=== PATIENT | female | born 1965 | race Caucasian/White ===

== ENCOUNTER → 2018-02-13 14:20 | Outpatient (CLI) | payer BC, OTHER, SELFPAY | PROVIDERS: PCP Family Medicine; Visit Provider Specialist | DX: G47.33 Obstructive sleep apnea (adult) (pediatric) (principal) | CPT/HCPCS: 94762 ==

== ENCOUNTER → 2018-03-23 12:20 | Outpatient (CLI) | payer BC, OTHER, SELFPAY ==
--- NOTE | 2018-03-23 12:27 | XR_ITS ---
XR chest 2V HISTORY: ITS.REASON: COUGH ORDERING PHYSICIAN: Corby Sandoval MD PATIENT AGE: 53 years COMPARISON: 08/24/2016 FINDINGS: The cardiomediastinal silhouette and pulmonary vascularity are within normal limits. 10 mm noncalcified nodules present in the left upper lobe not signally change. A loop recorder device is present over the precordial region on the left. The lungs are otherwise clear.. No acute bony abnormalities. IMPRESSION: No change with no acute finding
== END ==
PROVIDERS: PCP Family Medicine; Visit Provider Family Medicine
DX: R05 Cough (principal)
CPT/HCPCS: 71046

== ENCOUNTER → 2018-05-08 16:43 | Outpatient (CLI) | payer BC, OTHER, SELFPAY ==
--- NOTE | 2018-05-08 16:50 | MM_ITS ---
MM Dig screening mamm BI w/CAD ORDERING PHYSICIAN : Corby Sandoval MD PATIENT AGE: 53 years GENDER: Female COMPARISON: July 2015, 2014, August 2016, June 2013. Marked 1999 INDICATION: Routine screening mammogram+ no hormones. No new complaints. Family history. Noncontributory. TECHNIQUE: Standard CC and MLO images were obtained. R2 CAD reviewed. Additional axillary cc views bilateral FINDINGS: Moderate dense heterogeneous fibroglandular elements are seen throughout the breasts most evident at the central and superior breast towards upper-outer quadrant.. Mammography slightly limited breast of this density in character. The Overall fibroglandular parenchymal pattern is similar to previous studies with no focal dominant nor suspicious mass. No suspicious calcification There is a long-standing stable 8.5 mm nodule at the lateral aspect of the left breast, upper-outer quadrant. This is been present since studies dating back to at least 2012 and 2011.. Can be followed safely. . Scattered areas of fibroglandular density appears similar to previous studies with no significant or discrete new findings. IMPRESSION: No significant new findings. Moderately dense heterogeneous breast Follow-up in one year recommended. BI-RADS Category: 2 Benign Finding(s) RECOMMENDED FOLLOW-UP: 1YR 1 YEAR FOLLOW-UP (A letter has been sent to the patient regarding results of the study.)
== END ==
PROVIDERS: PCP Family Medicine; Visit Provider Family Medicine
DX: Z12.31 Encounter for screening mammogram for malignant neoplasm of breast (principal); N60.19 Diffuse cystic mastopathy of unspecified breast
CPT/HCPCS: 77067

== ENCOUNTER → 2018-08-14 15:32 | Outpatient (CLI) | payer BC, OTHER, SELFPAY ==
[2018-08-14 18:35] LABS: Anion Gap 14.4 mEq/L (5-15); Blood Urea Nitrogen 13 mg/dL (7-18); Calcium 8.9 mg/dL (8.5-10.1); Carbon Dioxide 27 mmol/L (21.0-32.0); Chloride 102 mmol/L (98-107); Creatinine,Serum 1.14 mg/dL (0.55-1.02); Estimated Glomerular Filt Rate 50 ml/min (>60); GFR (African American) 61 ML/MIN (>60); Glucose 111 mg/dL (74-106); Potassium 3.4 mmoL/L (3.5-5.1); Sodium 140 mmol/L (136-145)
== END ==
PROVIDERS: Visit Provider Urology
DX: R07.89 Other chest pain (principal); R06.00 Dyspnea, unspecified; R60.9 Edema, unspecified; G47.33 Obstructive sleep apnea (adult) (pediatric)
CPT/HCPCS: 36415; 80048; 83880

== ENCOUNTER → 2018-08-22 17:16 | Outpatient (CLI) | payer BC, OTHER, SELFPAY ==
[2018-08-22 19:12] LABS: Anion Gap 14.4 mEq/L (5-15); Blood Urea Nitrogen 12 mg/dL (7-18); Carbon Dioxide 29 mmol/L (21.0-32.0); Chloride 101 mmol/L (98-107); Creatinine,Serum 1.04 mg/dL (0.55-1.02); Estimated Glomerular Filt Rate 56 ml/min (>60); GFR (African American) 68 ML/MIN (>60); Glucose 94 mg/dL (74-106); Potassium 4.4 mmoL/L (3.5-5.1); Sodium 140 mmol/L (136-145)
== END ==
PROVIDERS: Physician Assistant; Visit Provider Urology
DX: R07.89 Other chest pain (principal); R00.2 Palpitations; R06.00 Dyspnea, unspecified; R60.9 Edema, unspecified; G47.33 Obstructive sleep apnea (adult) (pediatric)
CPT/HCPCS: 36415; 80048

== ENCOUNTER → 2018-08-25 07:11 | Outpatient (CLI) | payer BC, OTHER, SELFPAY ==
--- NOTE | 2018-08-25 07:17 | CA_ITS ---
PROCEDURE: INDICATIONS FOR THE TEST: Chest pain + COPD Heart Murmur Tobacco Smoking Palpitations Fatigue Syncope Edema Hypertension Diabetes Mellitus Rheumatic Fever SOB+COOPER Obesity Hyperlipidemia Family History HD Additional History PT HAS LOOP RECORDER PATIENT INFORMATION HEIGHT: 72 WEIGHT:268 GENDER: Female B/P:119/77 2-D/M-MODE INTERPRETATION: 2-D MEASUREMENTS OBSERVED VALUES IN CMS Right Ventricular Dimension (RVDd) 1.6 Interventricular Septum (Thickness)(IVsd) 1.1 Left Ventricular Internal Dimensions(LVIDd) 5.6 Left Ventricular Posterior Wall (Thickness)(LVPWd) 0.9 Aortic Root 2.6 Aortic Cusp Separation 2.1 Left Atrial Dimensions (LAD) 4.0 2D 1. Left atrium is mildly enlarged, left ventricle is normal size, there is no concentric left ventricular hypertrophy, visually estimated ejection fraction 55% with no regional wall motion abnormality. 2. The right atrium and right ventricle are normal size and contractility. 3. The aortic valve is minimally thickened and fibrosed. 4. The mitral and tricuspid valvular grossly normal. 5. Pulmonic valve is poorly visualized. 6. No significant pericardial effusion noted. DOPPLER INTERROGATION: Doppler interrogation of the aortic, mitral and tricuspid valvular presence of mild mitral and tricuspid regurgitation, tricuspid regurgitation jet velocity is inadequate for calculation of the right ventricular systolic pressure, grade 1 diastolic dysfunction seen without tissue Doppler evidence of raised left atrial pressure. Inferior vena cava is normal size with normal inspiratory collapse. CONCLUSION: 1. Mildly enlarged left atrium, normal left ventricular size, there is no concentric left ventricular hypertrophy, visually estimated ejection fraction 55% with no regional wall motion abnormality, grade 1 diastolic dysfunction seen without tissue Doppler evidence of raised left atrial pressure. 2. Mild mitral and tricuspid regurgitation, inferior vena cava is normal size with normal collapse. 3. No significant pericardial effusion noted.
--- NOTE | 2018-08-25 07:17 | NM_ITS ---
CARDIOLITE SPECT MYOCARDIAL PERFUSION LEXISCAN, REST AND STRESS: History: Hypertension, family history, chest pain, shortness of breath and fatigue Procedure: Patient received a 0.4 mg of intravenous Lexiscan, resting heart rate was 74 bpm resting blood pressure 136/77, with Lexiscan maximum heart rate achieved was 117 bpm which is less than 85% of the maximum predicted heart rate and a blood pressure was 140/70. With Lexiscan no symptoms reported. Electrocardiogram: Resting electrocardiogram showed sinus rhythm, with Lexiscan there is less than 1.[address] segment depression noted from the baseline EKG. The EKG portion of the Lexiscan Myoview is nondiagnostic. Cardiac stress and resting SPECT images: Cardiac stress and resting SPECT images were obtained using technetium 99 Myoview 30.7 mCi at stress and 10.4 mCi at rest, gated SPECT further analysis of segmental wall motion and calculation of the ejection fraction also done. Cardiac stress and the suspect show a mild fixed defect in the anterior wall with normal contractility in the gated SPECT is likely secondary to soft tissue attenuation. Computer derived ejection fraction is over 65% with no regional wall motion abnormality, right ventricle is normal size and contractility. Conclusion: 1. The EKG portion of the Lexiscan Myoview is nondiagnostic. 2. No scintigraphic evidence of reversible ischemia seen, computer derived ejection fraction is over 65% with no regional wall motion abnormality, right ventricle is normal size and contractility. 3. Normal Lexiscan Myoview study.
--- NOTE | 2018-08-25 11:47 | HMH.ITSHM ---
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 []iron oxazapam losartan citalopram cetirizine atorvastatin aspirin albuterol bupropion
== END ==
PROVIDERS: PCP Family Medicine; Visit Provider Internal Medicine Cardiovascular Disease
DX: R06.02 Shortness of breath (principal); R07.89 Other chest pain; R06.01 Orthopnea; R60.9 Edema, unspecified; G47.33 Obstructive sleep apnea (adult) (pediatric)
CPT/HCPCS: 78452; 93017; 93306; A9502; J2785

== ENCOUNTER → 2018-12-15 20:23 | Outpatient (CLI) | payer BC, OTHER, SELFPAY | PROVIDERS: PCP Family Medicine; Visit Provider Nurse Practitioner Family | DX: G47.31 Primary central sleep apnea (principal) | CPT/HCPCS: 95811 ==

== ENCOUNTER → 2019-07-10 09:17 | Outpatient (CLI) | payer BC, OTHER, SELFPAY ==
[2019-07-10 10:24] LABS: Alanine Aminotransferase 16 U/L (12-78); Aspartate Amino Transferase 18 U/L (14-36); Bilirubin,Unconjugated 0.4 mg/dL (0.0-1.1)
[2019-07-10 10:25] LABS: Albumin Level 4.3 g/dl (3.5-5.0); Alkaline Phosphatase 116 U/L (38-126); Bilirubin,Indirect 0.3 mg/dL (0.0-0.9); Bilirubin,Total 0.3 mg/dl (0.2-1.3); Chol/HDL Ratio 2.5 (1-3.5); Cholesterol 128 mg/dl (140-200); HDL Cholesterol 51 mg/dl (40-60); Total Protein,Serum 6.8 g/dl (6.3-8.2); Triglycerides 122 mg/dl (30-150); VLDL Cholesterol 24 mg/dL (0-40)
[2019-07-10 10:36] LABS: Direct LDL Cholesterol 82.46 mg/dL (100-129)
== END ==
PROVIDERS: Visit Provider Nurse Practitioner Family
DX: E78.2 Mixed hyperlipidemia (principal); I10 Essential (primary) hypertension; I51.89 Other ill-defined heart diseases; R60.9 Edema, unspecified
CPT/HCPCS: 36415; 80061; 80076

== ENCOUNTER → 2019-10-22 13:07 | Outpatient (POV) | payer BC, OTHER, SELFPAY | PROVIDERS: Visit Provider Nurse Practitioner Family | DX: Z00.00 Encounter for general adult medical examination without abnormal findings (principal) ==

== ENCOUNTER → 2019-10-31 07:51 | Outpatient (CLI) | payer BC, OTHER, SELFPAY ==
--- NOTE | 2019-10-31 07:58 | MM_ITS ---
PROCEDURE: MM DIG SCREENING MAMM BI W/CAD Digital Breast Tomosynthesis Included CLINICAL INDICATION: SCREENING There is no personal or family history of breast cancer. COMPARISON: MG [facility]B DIG MAMM-SCREEN [place] from 08/26/2015 MG [facility] DIG MAMM-SCREEN [place] W/CAD from 09/08/2016 MG [facility] MM Dig screening mamm BI w/CAD from 05/08/2018 TECHNIQUE: Standard CC and MLO images and 3D Tomosynthesis was obtained. R2 CAD reviewed. FINDINGS: Moderate scattered fibroglandular densities are seen in the central portions of both breasts. There is a stable benign-appearing nodular density upper-outer quadrant left breast. There is a benign-appearing nodular density lower outer quadrant right breast. There is no suspicious lesion in either breast and no suspicious microcalcifications. IMPRESSION: Moderate breast density with no suspicious lesions seen BI-RAD Category: 2 Benign Finding(s) FOLLOW-UP: 1YR 1 Year Follow-up (A letter has been sent to the patient regarding results of the study.) Dictated by: Dr. Arnoldo Trejo MD 11/01/2019 12:46 Dr. Arnoldo Trejo MD in [place] 11/01/2019 12:46
== END ==
PROVIDERS: PCP Family Medicine; Visit Provider Family Medicine
DX: Z12.31 Encounter for screening mammogram for malignant neoplasm of breast (principal)
CPT/HCPCS: 77063; 77067

== ENCOUNTER → 2019-11-22 08:50 | Outpatient (CLI) | payer BC, OTHER, SELFPAY ==
[2019-11-22 11:41] LABS: Coronavirus 19 IgG Antibody Negative (Negative); Coronavirus 19 IgM Antibody Negative (Negative)
== END ==
PROVIDERS: Visit Provider Internal Medicine Gastroenterology
DX: Z01.89 Encounter for other specified special examinations (principal); Z12.11 Encounter for screening for malignant neoplasm of colon; Z13.810 Encounter for screening for upper gastrointestinal disorder
CPT/HCPCS: 36415; 86328

== ENCOUNTER 2019-11-23 11:32 | Day surgery (SDC) | payer BC, OTHER, SELFPAY ==
[2019-11-15 15:18] VITALS: BMI 39.0
[2019-11-23 12:35] VITALS: BP 136/77; PULSE 73; RESP 18; TEMP 36.3; O2SAT 98
[2019-11-23 13:14] VITALS: O2SAT 95
--- NOTE | 2019-11-23 13:23 | HMH.PROC ---
[facility] Procedure Note Procedure Note:: Upper Endoscopy Procedure Report: Esophagogastroduodenoscopy with cold biopsies and TTS balloon dilation Endoscopost: Rakesh Cox II, MD Referring Physician: Hadley Sandoval MD Date of Procedure: November 23, 2019 Equipment: Olympus GIF 180 standard upper endoscope Sedation: MAC sedation Indications: Mrs. Blackman is a 54-year-old female who is here for diagnostic upper endoscopy. She did have a very small tongue of Devlin's esophagus/intestinal metaplasia at the time of her EGD by Dr. Oh Lacy M.D. in 2012. She is on omeprazole that controls her reflux. If she forgets to take this she will have heartburn. She does have some occasional dysphagia/globus sensation. She reports no abdominal pain or dyspepsia. Procedure: Prior to the procedure, a history and physical exam was performed, and patient's medications and allergies were reviewed. The risks, benefits and alternatives of the sedation and procedure were discussed with the patient. All questions were answered and informed consent was obtained. The patient was brought to the procedure room. Patient identification and proposed procedure were verified by the physician and the nurse. The patient was placed in a left lateral decubitus position and the scope was passed under direct vision. Throughout the procedure, the patient's blood pressure, pulse, and oxygen saturations were monitored continuously. The upper GI endoscopy was accomplished without difficulty. The patient tolerated the procedure well. Findings: The scope was passed directly into the upper esophagus and advanced to the third portion of the duodenum. The post bulbar duodenum and duodenal bulb were normal with normal mucosa and conniventes. The scope was withdrawn through a normal duodenal bulb and pylorus into the stomach. There was some mild linear reactive gastropathy of the antrum. There were a few gastric fundic gland polyps in the body and fundus. The largest polyp was removed via cold biopsy. The remainder of the antrum, body and fundus of the stomach were grossly normal. Upon retroflexion there was no hiatal hernia. The scope was then withdrawn into the esophagus. There was no evidence of Devlin's esophagus. Biopsies were taken at the GE junction to rule out intestinal metaplasia. The remainder of the esophageal mucosa was normal. Impression: 1. Nonerosive GERD 2. Gastric fundic gland polyps 3. Mild linear reactive gastropathy Plan: I will follow-up the biopsies. I will discussed the findings with the patient and family. I do not see evidence of Devlin's esophagus and thus I feel she has uncomplicated GERD.
--- NOTE | 2019-11-23 13:39 | P.PCN_ITS ---
[facility] Procedure Note Procedure Note:: Colonoscopy Procedure Report: Colonoscopy Endoscopist: Rakesh Cox II, MD Referring physician: Hadley Sandoval MD Date of Procedure: November 23, 2019 Equipment: Olympus 180 variable stiffness pediatric colonoscope Sedation: MAC sedation Indication: Mrs. Blackman is a 54-year-old female who is here for initial screening colonoscopy. She reports no abdominal pain, weight loss, change in her bowel habits or rectal bleeding. She reports no family history of colon cancer. Procedure: Prior to the procedure, a history and physical exam was performed, and patient's medications and allergies were reviewed. The risks, benefits and alternatives of the sedation and procedure were discussed with the patient. All questions were answered and informed consent was obtained. The patient was brought to the procedure room. Patient identification and proposed procedure were verified by the physician and the nurse. The patient was placed in a left lateral decubitus position and the scope was passed under direct vision. Throughout the procedure, the patient's blood pressure, pulse, and oxygen saturations were monitored continuously. The colonoscopy was accomplished without difficulty. The patient tolerated the procedure well. Findings: On digital rectal examination there was normal rectal tone. There were no external hemorrhoids. The colonoscope was introduced through the anal canal to the rectum and advanced to the cecum. The ileocecal valve and appendiceal orifice were identified. The scope was advanced a short distance into the ileum which appeared grossly normal. The scope was then withdrawn into the colon. The cecum, ascending, transverse, descending, sigmoid and rectum were grossly normal. There were no mucosal abnormalities identified. Upon retroflexion within the rectum there were grade 1 internal hemorrhoids.The preparation was excellent throughout with [place] Preparation Score of 9. The cecal time was 8 minutes. Impression: 1. Normal colonoscopy with intubation of the terminal ileum Plan: The patient will not require screening/surveillance colonoscopy again for 10 y ears by ACS guidelines. I would encourage fiber supplementation on a long-term daily maintenance basis.
[2019-11-23 13:50] VITALS: BP 93/45; PULSE 72; RESP 18; O2SAT 96
[2019-11-23 13:55] VITALS: BP 103/55; PULSE 82; RESP 18; TEMP 36.2; O2SAT 93
[2019-11-23 14:05] VITALS: BP 115/69; PULSE 67; RESP 18; O2SAT 98
[2019-11-23 14:10] VITALS: BP 115/69; PULSE 67; RESP 18; O2SAT 97
--- NOTE | 2019-11-23 14:28 | P.PN_ITS ---
[facility] Anesthesia Checklist - Patient Identification Patient Identification: Arm Band - Structural Data Admitted From: Home Planned Operative Procedure/s: egd/colonoscopy Consent for Planned Operative Procedure(s) Verified: Yes Verified Documents: Surgical Consent, History and Physical - NPO Status Verified Time NPO: 00:00 - Additional verifications Anesthesia Reactions: No - Airway Assessment C-Spine Mobility Assessed: Yes (mp2) TMJ Mobility Assessed: Yes Dentition: Good Dentition - Neurological Assessment Level of Consciousness: Awake, Alert - Anesthesia Plan Anesthesia Risk discussed: Yes Anesthesia Plan: Verified ASA Class: III Anesthesia Type: MAC [facility] History I have reviewed the patient's past medical history: Yes Medical History: Reports:: Anxiety, Depression, Gastroesophageal Reflux Disease(GERD), Lung Disease ([place]), Palpitations Denies:: Cancer, Diabetes Mellitus Type 1, Diabetes Mellitus Type 2, Internal Pacemaker, MRSA, Seizures *Have you ever received a pneumonia vaccine?: No *Have you received a flu vaccine this season?: No Anesthesia experience/problems:: nac Other Surgeries: Yes: Cardiac Catheterization, Hernia Repair, Hysterectomy- Total. No: Pacemaker Amputation: No Fractures: No - *Social History Last grade of school completed: Advanced degree Smoking Status: Never smoker Alcohol Intake: never Alcohol Intake Frequency:: holidays/special occasions only Substance Use Type: denies use *Occupational Status:: employed Housing: house Household Members: spouse, family *Travel in the last 8 weeks: None - Psychiatric History Pschychiatric History:: Reports:: Anxiety, Depression Family Hx:: Cancer
== END 2019-11-23 14:30 | disposition home or self-care (01) ==
LOC: OUTP 11:32
PROVIDERS: PCP Family Medicine; Visit Provider Internal Medicine Gastroenterology
PROC: 0DJ08ZZ Inspection of Upper Intestinal Tract, Via Natural or Artificial Opening Endoscopic (ICD-10-PCS; CPT 43235; principal; 2019-11-23 12:30)
DX: Z12.11 Encounter for screening for malignant neoplasm of colon (principal); K31.7 Polyp of stomach and duodenum; K21.9 Gastro-esophageal reflux disease without esophagitis; K31.9 Disease of stomach and duodenum, unspecified; Z87.19 Personal history of other diseases of the digestive system; G47.33 Obstructive sleep apnea (adult) (pediatric); F41.9 Anxiety disorder, unspecified; F32.9 Major depressive disorder, single episode, unspecified; Z88.2 Allergy status to sulfonamides; Z79.899 Other long term (current) drug therapy; Z79.82 Long term (current) use of aspirin
CPT/HCPCS: 45378; 43239; 43249; C1726

== ENCOUNTER → 2020-01-26 09:32 | Outpatient (CLI) | payer BC, OTHER, SELFPAY ==
[2020-01-26 11:33] LABS: Basophils % 0.4 % (0.1-2.0); Eosinophils % 0.1 % (0.1-12.0); Hematocrit 42.2 % (37.0-47.0); Hemoglobin 13.5 g/dL (12.2-16.2); Lymphocytes # 1.8 K/mm3 (0.7-4.5); Lymphocytes % 24.7 % (10-50); Mean Corpuscular HGB Conc 32.1 g/dL (31.8-35.4); Mean Corpuscular Hemoglobin 29.4 pg (27.0-31.2); Mean Corpuscular Volume 91.6 fl (81-99); Mean Platelet Volume 8.1 fl (7.4-10.4); Monocytes # 0.3 K/mm3 (0.1-1.0); Monocytes % 4.6 % (1.7-9.3); Neutrophils % 70.2 % (37.0-80.0); Platelet Count 295 K/mm3 (142-424); Red Blood Count 4.61 M/mm3 (4.20-5.40); Red Cell Distribution Width 14.1 % (11.5-17.5); White Blood Count 7.1 K/mm3 (4.8-10.8)
== END ==
PROVIDERS: PCP Family Medicine; Visit Provider Family Medicine
DX: Z20.828 Contact with and (suspected) exposure to other viral communicable diseases (principal); U07.1 COVID-19
CPT/HCPCS: 36415; 85025; U0003

== ENCOUNTER → 2020-07-03 07:17 | Outpatient (CLI) | payer BC, OTHER, SELFPAY ==
--- NOTE | 2020-07-03 07:22 | CT_ITS ---
PROCEDURE: CT SINUS WO CON CLINICAL HISTORY: SENSE OF SMELL ALTERED Altered smell [id number] Hx of covid COMPARISON: No exams were available for comparison TECHNIQUE: Axial images obtained with sagittal and coronal reformats. All CT scans at the facility use one or more dose reduction, viz: automated exposure control, ma/kV adjustment per patient size (including targeted exams where dose is matched to indication, i.e. head), or iterative reconstruction technique. FINDINGS: No paranasal sinus air-fluid levels. No significant mucosal thickening. There is a small retention cyst in the right maxillary sinus anteriorly and inferiorly at 4 mm. No mastoid effusion. The orbits have an unremarkable appearance. No significant nasal septal deviation. There are mild osteoarthritic changes of the left TMJ with a small subchondral cyst at 3 mm. There is a small well-circumscribed calcific density along the inner table of the right temporal bone measuring approximately 6 x 3 mm. An additional 5 mm well-circumscribed calcific density is noted just deep to the left sphenoid bone in the anterior temporal area. These may be related to small areas of enostosis. Calcified meningioma is included in the differential diagnosis. No mass effect. 6-[address] follow-up may confirm stability. IMPRESSION: 1. No evidence of sinusitis. No acute finding 2. Nonacute incidental findings as described above. Dictated by: Juan Flynn MD 07/04/2020 06:49 Juan Flynn MD in [place] 07/04/2020 06:49
== END ==
PROVIDERS: PCP Family Medicine; Visit Provider Family Medicine
DX: R43.9 Unspecified disturbances of smell and taste (principal)
CPT/HCPCS: 70486

== ENCOUNTER 2020-07-15 21:44 | Emergency (ER) | payer BC, OTHER, SELFPAY ==
[2020-07-15 22:02] VITALS: BP 148/80; PULSE 63; RESP 18; TEMP 36.7
== END 2020-07-15 22:06 | disposition left against medical advice (07) ==
PROVIDERS: Emergency Provider Emergency Medicine; PCP Family Medicine
DX: Z53.21 Procedure and treatment not carried out due to patient leaving prior to being seen by health care provider (principal)
CPT/HCPCS: 99211

== ENCOUNTER → 2020-07-23 07:45 | Outpatient (CLI) | payer BC, OTHER, SELFPAY ==
--- NOTE | 2020-07-23 07:46 | CA_ITS ---
APPROVED REPORT Laboratory Helper: Marianela Shipley RVT Study Quality: Good Indications: HTN Risk Factors Hypertension Obesity Renal Artery Doppler Origin (R) 216.7/ cm/sec Proximal (R) 228.3/ cm/sec Mid (R) 206.6/ cm/sec Distal (R) 244.2/ cm/sec Renal Aorta Ratio (R) 2.38 Segmental A. (R) 46.7/14.1 cm/sec RI: 0.69 Segmental A. Sup (R) 46.7/14.1 cm/sec Segmental A. Mid (R) 43.2/13.3 cm/sec Segmental A. Inf (R) 42.4/6.3 cm/sec Origin (L) 145.9/ cm/sec Proximal (L) 143.0/ cm/sec Mid (L) 152.6/ cm/sec Distal (L) 176.3/ cm/sec Renal Aorta Ratio (L) 1.72 Segmental A. (L) 83.8/28.9 cm/sec RI: 0.65 Segmental A. Sup (L) 83.8/28.9 cm/sec Segmental A. Mid (L) 65.0/26.0 cm/sec Segmental A. Inf (L) 41.8/6.8 cm/sec Renal Measurements Kidney Size (R) 11.5x7.0 cm Cortical Thickness (R) 1.9 cm Kidney Size (L) 11.8x5.2 cm Cortical Thickness (L) 1.7 cm Findings Study suggests greater than 60% stenosis of the right renal artery. Study suggests no evidence of stenosis of the left renal artery. Conclusion Study suggests greater than 60% stenosis of the right renal artery. Study suggests no evidence of stenosis of the left renal artery. Electronically signed by : Juan Flynn MD 07/23/2020 16:37:10
== END ==
PROVIDERS: PCP Family Medicine; Visit Provider Physician Assistant
DX: R07.9 Chest pain, unspecified (principal); R60.9 Edema, unspecified; I10 Essential (primary) hypertension; E78.2 Mixed hyperlipidemia
CPT/HCPCS: 93976

== ENCOUNTER → 2020-07-31 12:19 | Outpatient (CLI) | payer BC, OTHER, SELFPAY ==
[2020-07-31 13:08] LABS: Basophils # 0.1 K/mm3 (0-0.2); Basophils % 0.7 % (0.1-2.0); Eosinophils # 0.1 K/mm3 (0.0-0.4); Hematocrit 36.2 % (37.0-47.0); Hemoglobin 12.2 g/dL (12.2-16.2); Lymphocytes # 2.8 K/mm3 (0.7-4.5); Lymphocytes % 37.4 % (10-50); Mean Corpuscular HGB Conc 33.8 g/dL (31.8-35.4); Mean Corpuscular Hemoglobin 29.8 pg (27.0-31.2); Mean Corpuscular Volume 88.1 fl (81-99); Mean Platelet Volume 7.7 fl (7.4-10.4); Monocytes # 0.4 K/mm3 (0.1-1.0); Monocytes % 4.9 % (1.7-9.3); Neutrophils # 4.1 K/mm3 (1.8-7.8); Neutrophils % 55.1 % (37.0-80.0); Platelet Count 345 K/mm3 (142-424); Red Cell Distribution Width 13.5 % (11.5-17.5); White Blood Count 7.4 K/mm3 (4.8-10.8)
[2020-07-31 13:39] LABS: Chloride 102 mmol/L (98-107)
[2020-07-31 13:40] LABS: Potassium 4.4 mmoL/L (3.5-5.1); Sodium 139 mmol/L (136-145)
[2020-07-31 13:42] LABS: Blood Urea Nitrogen 12 mg/dl (7-17); Estimated Glomerular Filt Rate 65 ml/min (>60); GFR (African American) 79 ML/MIN (>60)
[2020-07-31 13:43] LABS: Anion Gap 12.4 mEq/L (5-15); Calcium 9.3 mg/dl (8.4-10.2); Carbon Dioxide 29 mmol/L (22.0-30.0); Glucose 101 mg/dl (74-100)
== END ==
PROVIDERS: Visit Provider Internal Medicine
DX: Z01.812 Encounter for preprocedural laboratory examination (principal); Z11.52 Encounter for screening for COVID-19; R93.429 Abnormal radiologic findings on diagnostic imaging of unspecified kidney
CPT/HCPCS: 36415; 80048; 85025; U0003

== ENCOUNTER 2020-08-01 07:55 | Day surgery (SDC) | payer BC, OTHER, SELFPAY ==
[2020-08-01] VITALS (11 sets, daily range): BP systolic 98–184; BP diastolic 60–84; PULSE 67–85; RESP 18–20; O2SAT 89–95; BMI 38.7
--- NOTE | 2020-08-01 07:07 | IR_ITS ---
APPROVED REPORT Patient Location: Outpatient Promotions Specialist: LORI Moreno RT (R) PROCEDURES Bilateral selective renal angiography INDICATION Abnormal renal duplex, Suggested renal artery stenosis Informed consent was obtained prior to the procedure. COMPLICATIONS NONE Estimated Blood Loss: LESS THAN 10 10 ML TECHNIQUE One percent lidocaine used to anesthetize the right anterior aspect of the wrist. The right radial artery was accessed via the Seldinger technique. A 6 Palauan sheath was placed in the right radial artery. 2.5 mg of verapamil, 800 mcg of nitroglycerin, 1mg Lidocaine and 5000 U Heparin were given through the arterial sheath. A long 6 Palauan hydrophilic Terumo sheath was placed in the right radial artery which ended in the thoracic aorta. A PV multi curve was used to perform selective bilateral renal angiography. At the end the procedure the apparatus was removed the sheath was removed and hemostasis achieved using TR banding patient was transferred to the postop holding in stable condition ANGIOGRAPHIC RESULTS The right renal artery singular normal Left renal artery singular normal IMPRESSION Normal bilateral renal arteries PLAN 1. Continue medical management Electronically signed by : Matt Rodgers, 08/01/2020 09:09:18
== END 2020-08-01 11:34 | disposition home or self-care (01) ==
LOC: CATHLAB 07:55
PROVIDERS: PCP Family Medicine; Visit Provider Internal Medicine
DX: R93.429 Abnormal radiologic findings on diagnostic imaging of unspecified kidney (principal); I10 Essential (primary) hypertension; E78.5 Hyperlipidemia, unspecified; Z95.0 Presence of cardiac pacemaker; Z79.899 Other long term (current) drug therapy
CPT/HCPCS: 36252; 99152; C1725; C1760; C1769; J1644; Q9967

== ENCOUNTER → 2020-08-19 12:14 | Outpatient (CLI) | payer BC, OTHER, SELFPAY | PROVIDERS: Visit Provider Nurse Practitioner Family | DX: Z01.812 Encounter for preprocedural laboratory examination (principal); R06.02 Shortness of breath; Z11.52 Encounter for screening for COVID-19; R55 Syncope and collapse; R00.2 Palpitations; R60.9 Edema, unspecified; I10 Essential (primary) hypertension; E78.2 Mixed hyperlipidemia; G47.33 Obstructive sleep apnea (adult) (pediatric) | CPT/HCPCS: U0003 ==

== ENCOUNTER 2020-08-21 12:46 | Day surgery (SDC) | payer BC, OTHER, SELFPAY ==
--- NOTE | 2020-08-21 | CA_ITS ---
APPROVED REPORT Laterality: Unilateral right Farm Equipment Engineer: Natty Roberto RT(R) Risk Factors Hyperlipidemia Comments Heart cath 3 weeks with pain at rt wrist site. Patient states it pops and bleeds occasionally. Edema noted at right wrist Findings No evidence of pseudoaneurysm in Rt radial artery. Conclusion No evidence of pseudoaneurysm in Rt radial artery. Electronically signed by : Juan Flynn MD 08/21/2020 16:16:04
--- NOTE | 2020-08-21 12:53 | CA_ITS ---
APPROVED REPORT EXAM: Comprehensive 2D, Doppler, and color-flow Echocardiogram Boiler Assistant Operator: Natty Roberto RT(R) Ht: 5 ft 11 in Wt: 278lbs BSA: 2.43 BP: 139/91 mmHg Indications: palpitations, SOB, hyperlipidemia, DD, KWASI, SOB, syncope 2D Dimensions LVOT 1.82 cm (M/F) 1.5-2.5 LVEF (Reed's) 54.90 % LV Volume 97.00 mL LA Volume 34.90 mL LA Volume Index 14.40 mL/m2 (M/F) 16-34 M-Mode Dimensions RVDd 3.19 cm (0.9-2.6) LA Diam 3.85 cm (1.9-4.0) LVDd 4.79 cm (3.5-5.7) Ao Diam 2.74 cm (2.0-3.7) LVDs 3.46 cm (3.5-5.7) IVSd 0.91 cm (0.6-1.1) PWd 0.91 cm (0.6-1.1) EF (Teich) 53.70% FS 27.80% EDV (Teich) 107.00 mL ESV (Teich) 49.50 mL LV Diastology E Decel Time 170.00 (160-240 msec) E/A Ratio 0.64 MED E' 6.90 (< 7 cm/sec) E'/MED E' Ratio 9.13 (>14) LAT E' 12.10 (<10 cm/sec) E/LAT E' Ratio 5.21 (>14) Mitral Valve MV E Max Freddy. 63.00 (40-130 cm/s) MV A Velocity 98.00 (40-130 cm/s) E/A Ratio 0.64 MV Decel. Time 170.00 (160-240 ms) MV PHT 50.00 ms Left Ventricle Left atrium is mildly enlarged, left ventricle is normal size, mild concentric left ventricular hypertrophy, visually estimated ejection fraction 55% with no regional wall motion abnormality, grade 1 diastolic dysfunction seen without tissue Doppler evidence of raise left atrial pressure. Right Ventricle Right atrium and right ventricle are mildly enlarged with normal contractility. Aortic Valve Aortic valve is minimally thickened and fibrosed, there is no aortic stenosis or aortic insufficiency. Mitral Valve Mitral valve is grossly normal, there is trace mitral regurgitation. Tricuspid Valve Tricuspid grossly normal, there is trace tricuspid rotation, tricuspid regurgitation jet velocity is inadequate for calculation of the right ventricular systolic pressure. Pulmonic Valve Pulmonic valve is poorly visualized. Great Vessels Aortic root is normal size. Pericardium No significant pericardial effusion noted. Conclusion 1. Mild biatrial enlargement, normal left ventricular size, mild concentric left ventricular hypertrophy, visually estimated ejection fraction 55% with no regional wall motion abnormality, grade 1 diastolic dysfunction seen without tissue Doppler evidence of raise left atrial pressure. 2. Mildly enlarged right ventricle with normal contractility 3. Trace mitral and tricuspid regurgitation. 4. No significant pericardial effusion noted. Electronically signed by : Colten Nelson, 08/21/2020 15:26:06
[2020-08-21 13:19] VITALS: BMI 38.7
[2020-08-21 13:54] VITALS: BP 149/80; PULSE 81; RESP 20; O2SAT 94
[2020-08-21 14:00] VITALS: BP 137/87; PULSE 80; RESP 17; O2SAT 98
[2020-08-21 14:10] VITALS: BP 124/81; PULSE 80; RESP 17; O2SAT 99
[2020-08-21 14:17] VITALS: PULSE 78
[2020-08-21 14:20] VITALS: BP 134/82; PULSE 77; RESP 17; O2SAT 99
--- NOTE | 2020-08-21 14:51 | P.PCN_ITS ---
[facility] Loop Recorder Date: 08/21/20 Time: 14:00 Procedure Performed:: Existing loop recorder removal New loop recorder insertion Indication:: Syncope Technique:: Patient was brought to the cardiac Bell Spinner Sousaphones. After informed consent obtained, 1% lidocaine with epinephrine was used to anesthetize the site along the left anterior aspect of the chest near the sternal border near the existing loop recorder. Using a #10 scalpel dissection was made down to the existing loop recorder and using forceps was removed without complications. Using the existing incision but in a different orientation, the supplied preloaded apparatus was inserted and the loop recorder was placed subcutaneously without difficulty. Following the deployment of the loop recorder interrogation of the device was performed to ensure appropriate voltage was being detected (0.2 millivolts with good EKG waveform). Once this was verified, Steri-Strips were placed over the incision and the patient was prepped to discharge home. Patient tolerated the procedure well with minimal discomfort. Impression:: Successful removal of existing loop recorder and successful implantation of new loop recorder Serial Number:: [facility]-DX reference M301 serial #[id number] Plan:: Routine postop care
== END 2020-08-21 14:24 | disposition home or self-care (01) ==
LOC: CATHLAB 12:48
PROVIDERS: PCP Family Medicine; Visit Provider Internal Medicine
DX: R00.2 Palpitations (principal); E78.2 Mixed hyperlipidemia; G47.33 Obstructive sleep apnea (adult) (pediatric); I10 Essential (primary) hypertension; R06.02 Shortness of breath; R55 Syncope and collapse; R60.9 Edema, unspecified
CPT/HCPCS: 33285; 93306; 93931

== ENCOUNTER → 2020-09-05 09:17 | Outpatient (CLI) | payer BC, OTHER, SELFPAY ==
--- NOTE | 2020-09-05 09:28 | CA_ITS ---
APPROVED REPORT Bilateral Lower Extremity Venous Study for DVT. Warehouse Driver: Marianela Shipley RVT Indications Lower Extremity Edema: Bilateral BLE EDEMA Risk Factors Obesity Vein Imaging CFV (R): compressive, spontaneous, phasic, augmentation FEM (R): compressive, spontaneous, phasic, augmentation POP (R): compressive, spontaneous, phasic, augmentation PTV (R): Compressible GSV (R): Compressible Peroneals (R):Compressible GAS (R): Compressible CFV (L): compressive, spontaneous, phasic, augmentation FEM (L): compressive, spontaneous, phasic, augmentation POP (L): compressive, spontaneous, phasic, augmentation PTV (L): Compressible GSV (L): Compressible Peroneals (L):Compressible GAS (L): Compressible Findings Study suggests no evidence of DVT or SVT of the bilateral lower extremites. Conclusion Study suggests no evidence of DVT or SVT of the bilateral lower extremites. Electronically signed by : Juan Flynn MD 09/05/2020 14:10:13
== END ==
PROVIDERS: PCP Family Medicine; Visit Provider Family Medicine
DX: Z87.448 Personal history of other diseases of urinary system (principal)
CPT/HCPCS: 93970

== ENCOUNTER → 2020-09-06 07:16 | Outpatient (CLI) | payer BC, OTHER, SELFPAY ==
[2020-09-06 09:22] LABS: Alanine Aminotransferase 16 U/L (12-78); Albumin Level 4.2 g/dl (3.5-5.0); Albumin/Globulin Ratio 1.7 (1.1-1.8); Alkaline Phosphatase 110 U/L (38-126); Anion Gap 15.4 mEq/L (5-15); Aspartate Amino Transferase 20 U/L (14-36); Bilirubin,Total 0.6 mg/dl (0.2-1.3); Blood Urea Nitrogen 13 mg/dl (7-17); Carbon Dioxide 27 mmol/L (22.0-30.0); Chloride 103 mmol/L (98-107); Estimated Glomerular Filt Rate 65 ml/min (>60); GFR (African American) 79 ML/MIN (>60); Globulin 2.5 g/dL (1.3-3.2); Glucose 106 mg/dl (74-100); Potassium 4.4 mmoL/L (3.5-5.1); Sodium 141 mmol/L (136-145); Total Protein,Serum 6.7 g/dl (6.3-8.2)
== END ==
PROVIDERS: Visit Provider Family Medicine
DX: N28.9 Disorder of kidney and ureter, unspecified (principal)
CPT/HCPCS: 80053

== ENCOUNTER → 2020-09-09 10:18 | Outpatient (CLI) | payer BC, OTHER, SELFPAY ==
--- NOTE | 2020-09-09 10:22 | CT_ITS ---
PROCEDURE: CT ABDOMEN WO/W CON CLINICAL HISTORY: SVT Evaluate adrenal glands the COMPARISON: No exams were available for comparison TECHNIQUE: Axial images obtained with sagittal and coronal reformats. All CT scans at the facility use one or more dose reduction, viz: automated exposure control, ma/kV adjustment per patient size (including targeted exams where dose is matched to indication, i.e. head), or iterative reconstruction technique. FINDINGS: Lung bases are clear. Minimal pericardial thickening anteriorly on right. No adrenal mass apparent. The adrenal glands have an unremarkable appearance. Prior cholecystectomy. The liver,adrenal glands, pancreas, and kidneys have an unremarkable appearance. There is mild splenomegaly at 14 cm. No renal calculi or hydronephrosis. No retroperitoneal mass apparent. There is a mild amount of retained colonic feces. No acute bony findings. Unremarkable appearing appendix. IMPRESSION: Negative CT abdomen without and with contrast. No evidence of adrenal mass. Dictated by: Juan Flynn MD 09/09/2020 12:14 Juan Flynn MD in [place] 09/09/2020 12:14
== END ==
PROVIDERS: PCP Family Medicine; Visit Provider Family Medicine
DX: I47.1 Supraventricular tachycardia (principal)
CPT/HCPCS: 74170; Q9967

== ENCOUNTER → 2020-12-26 16:02 | Outpatient (CLI) | payer BC, OTHER, SELFPAY ==
--- NOTE | 2020-12-26 16:04 | MM_ITS ---
PROCEDURE INFORMATION: Exam: MG Bilateral Screening 3D Mammography Exam date and time: 12/26/2020 4:04 PM Age: 55 years old Clinical indication: Encounter for screening mammogram for malignant neoplasm of breast TECHNIQUE: Imaging protocol: Bilateral screening tomosynthesis and 2D mammography including computer-aided detection (CAD) when performed. COMPARISON: 1. MG MM DIG SCREENING MAMM BI W/CAD 10/31/2019 8:05 AM 2. MG SCBI MM Dig screening mamm BI w/CAD 05/08/2018 4:54 PM 3. MG DMSB DIG MAMM-SCREEN HAILEY W/CAD 09/08/2016 5:01 PM FINDINGS: Limitations: Partial obscuration of the left upper inner quadrant, posterior depth, on MLO projection secondary to overlying loop recorder device. MAMMOGRAPHY: Breast composition: The breasts are heterogeneously dense, which may obscure small masses. Mass: No suspicious masses. Architectural distortion: No suspicious distortion. Calcifications: No suspicious calcifications. Asymmetric density: None. Skin thickening: None. Axillary adenopathy: None. IMPRESSION: No mammographic evidence of malignancy. Annual screening is recommended unless otherwise clinically indicated. ASSESSMENT: BI-RADS Category 2: Benign
== END ==
PROVIDERS: PCP Family Medicine; Visit Provider Family Medicine
DX: Z12.31 Encounter for screening mammogram for malignant neoplasm of breast (principal)
CPT/HCPCS: 77063; 77067

== ENCOUNTER → 2021-03-20 15:36 | Outpatient (CLI) | payer BC, OTHER, SELFPAY | PROVIDERS: Visit Provider Nurse Practitioner | DX: Z20.822 Contact with and (suspected) exposure to COVID-19 (principal) | CPT/HCPCS: C9803; U0003; U0005 ==

== ENCOUNTER → 2021-03-31 14:26 | Outpatient (CLI) | payer BC, OTHER, SELFPAY | PROVIDERS: PCP Psychiatry & Neurology Sleep Medicine; Visit Provider Nurse Practitioner | DX: Z20.822 Contact with and (suspected) exposure to COVID-19 (principal) | CPT/HCPCS: C9803; U0003; U0005 ==

== ENCOUNTER → 2021-08-06 14:07 | Outpatient (CLI) | payer BC, OTHER, SELFPAY ==
[2021-08-06 17:09] LABS: Anion Gap 13.3 mEq/L (5-15); Calcium 9.4 mg/dl (8.4-10.2); Carbon Dioxide 30 mmol/L (22.0-30.0); Chloride 99 mmol/L (98-107); Glucose 113 mg/dl (74-100); Potassium 4.3 mmoL/L (3.5-5.1); Sodium 138 mmol/L (136-145)
[2021-08-06 17:14] LABS: Blood Urea Nitrogen 10 mg/dl (7-17); Estimated Glomerular Filt Rate 65 ml/min (>60); GFR (African American) 79 ML/MIN (>60)
== END ==
PROVIDERS: PCP Family Medicine; Visit Provider Nurse Practitioner Family
DX: R06.00 Dyspnea, unspecified (principal); R07.89 Other chest pain; I10 Essential (primary) hypertension; R60.9 Edema, unspecified; E78.5 Hyperlipidemia, unspecified; G47.33 Obstructive sleep apnea (adult) (pediatric); Z95.818 Presence of other cardiac implants and grafts
CPT/HCPCS: 36415; 80048

== ENCOUNTER → 2021-08-14 11:12 | Outpatient (CLI) | payer BC, OTHER, SELFPAY ==
[2021-08-14 12:37] LABS: NT Pro Brain Natriuretic Pep. 84.4 pg/mL (0-125)
== END ==
PROVIDERS: PCP Family Medicine; Visit Provider Internal Medicine Cardiovascular Disease
DX: R06.00 Dyspnea, unspecified (principal); R07.89 Other chest pain; R00.2 Palpitations; I10 Essential (primary) hypertension; I51.89 Other ill-defined heart diseases; E78.5 Hyperlipidemia, unspecified; G47.33 Obstructive sleep apnea (adult) (pediatric); R60.9 Edema, unspecified; Z95.818 Presence of other cardiac implants and grafts
CPT/HCPCS: 36415; 83880

== ENCOUNTER → 2021-09-15 15:01 | Outpatient (CLI) | payer BC, OTHER, SELFPAY | PROVIDERS: PCP Family Medicine; Visit Provider Family Medicine | DX: U07.1 COVID-19 (principal) | CPT/HCPCS: C9803; U0003; U0005 ==

== ENCOUNTER 2021-09-23 12:59 | Emergency (ER) | payer BC, OTHER, SELFPAY ==
[2021-09-23 12:59] VITALS: BP 120/55; PULSE 71; RESP 16; TEMP 36.5; O2SAT 97; BMI 38.3
--- NOTE | 2021-09-23 13:25 | PC.NURSE ---
Pt brought back to room 10 in ER from triage room, via wheelchair. Pt requested to remain in wheelchair versus get on stretcher at this time.
--- NOTE | 2021-09-23 13:38 | HMH.EDGENADL ---
ED Disposition Clinical Impression: Strain of lumbar region Qualifiers: Encounter type: initial encounter Qualified Code(s): S39.012A - Strain of muscle, fascia and tendon of lower back, initial encounter Disposition: Home, Self-Care Condition on Discharge: Good Instructions: DI for Low Back Pain Additional Instructions: Toradol, Robaxin, and prednisone as prescribed. Rest. Use heating pad to back 3-4 times a day. Additional instructions for BACK PAIN: See your physician as soon as possible for further evaluation. Return immediately if back pain becomes intolerable, or if fever, numbness or weakness of your legs, loss of control of your bowels or bladder. Prescriptions: Ketorolac Tromethamine [Toradol 10mg tablet] 10 mg PO Q6HP PRN #10 tab PRN Reason: Moderate Pain Transmission Status: Received by [facility] methocarbamoL [Methocarbamol] 750 mg PO TID #15 tab Transmission Status: Received by [facility] predniSONE [Prednisone 20mg Tab] 20 mg PO BID #10 tab Transmission Status: Received by [facility] Referrals: Corby Sandoval MD [Primary Care Provider] - Forms: Work/School Release - Critical Care Critical Care Time: No Attestation: On 09/23/21, the high probability of a clinically significant, sudden or life threatening deterioration of the following system(s) required my full and direct attention, intervention and personal management. The time I documented below is in addition to time spent performing reported procedures but includes the following listed in this critical care notation. Medical Decision Making - Jim Inquiry Pt receiving controlled substance: No Vital Signs: 09/23/21 12:59 09/23/21 13:43 09/23/21 14:00 Temperature 97.7 F Temperature Source Oral Pulse Rate 69 61 Pulse Rate [Right Radial] 71 Respiratory Rate 16 18 Blood Pressure 134/88 144/86 H Blood Pressure [Right Arm] 120/55 L Blood Pressure Mean 98 96 Blood Pressure Mean [Right Arm] 76 Blood Pressure Source [Right Arm] Automatic Cuff Blood Pressure Position [Right Arm] Sitting 02 Sat by Pulse Oximetry 97 100 98 Oxygen Delivery Method Room Air Orders (Tests/Meds): ED MEDICATIONS Discontinued Medications Generic Name Dose Route Start Last Admin Trade Name Freq PRN Reason Stop Dose Admin Dexamethasone Sodium Phosphate 10 mg 09/23/21 13:46 09/23/21 13:53 Dexamethasone 4mg/Ml 1ml Vial IM 09/23/21 13:47 10 mg ONCE ONE Administration Ketorolac Tromethamine 60 mg 09/23/21 13:46 09/23/21 13:53 Ketorolac 60mg/2ml Vial IM 09/23/21 13:47 60 mg ONCE ONE Administration - Radiology Data #1 Image(s): L-Spine (Preliminary interpretation by me: No fracture or dislocation, no significant degenerative findings.) Image Reviewed: Yes I reviewed the patient's radiology image, Yes I have reviewed radiologist's interpretation PROCEDURE INFORMATION: Exam: XR Lumbosacral Spine Exam date and time: 09/23/2021 1:55 PM Age: 56 years old Clinical indication: Low back pain; Additional info: Pain. No trauma TECHNIQUE: Imaging protocol: Radiologic exam of the lumbosacral spine. Views: 2 or 3 views. COMPARISON: XA CL RENAL ANGIOGRAM BI 08/01/2020 8:40 AM FINDINGS: Bones/joints: Normal. No acute fracture. Normal alignment. Soft tissues: Unremarkable. IMPRESSION: No acute findings. General Adult HPI - General Chief complaint: Back Pain/Injury Stated complaint: back pain Time Seen by Provider: 09/23/21 13:39 Mode of Arrival: Wheelchair Limitations: No Limitations Description of Symptoms (Recalled from ER Triage Doc. by RN): Pt reports lower back pain that is across all of her lower back. Pt reports pain began this morning when getting into her car. 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 Pt denies numbne
--- NOTE | 2021-09-23 13:40 | PC.NURSE ---
notified ER of pt presenting s/s, no new orders obtained at this time
[2021-09-23 13:43] VITALS: BP 134/88; PULSE 69; RESP 18; O2SAT 100
--- NOTE | 2021-09-23 13:43 | PC.NURSE ---
Cycled BP and SPO2; ER MD is in room speaking to patient
--- NOTE | 2021-09-23 13:43 | PC.NURSE ---
ALY ARMANDO at
--- NOTE | 2021-09-23 13:46 | XR_ITS ---
PROCEDURE INFORMATION: Exam: XR Lumbosacral Spine Exam date and time: 09/23/2021 1:55 PM Age: 56 years old Clinical indication: Low back pain; Additional info: Pain. No trauma TECHNIQUE: Imaging protocol: Radiologic exam of the lumbosacral spine. Views: 2 or 3 views. COMPARISON: XA CL RENAL ANGIOGRAM BI 08/01/2020 8:40 AM FINDINGS: Bones/joints: Normal. No acute fracture. Normal alignment. Soft tissues: Unremarkable. IMPRESSION: No acute findings.
--- NOTE | 2021-09-23 13:48 | PC.NURSE ---
notified Rad of xray order, spoke with Aidan.
[2021-09-23 14:00] VITALS: BP 144/86; PULSE 61; O2SAT 98
--- NOTE | 2021-09-23 14:00 | PC.NURSE ---
pt to xray
--- NOTE | 2021-09-23 14:09 | PC.NURSE ---
pt returned from radiology. pt states she prefers to stay in the wheelchair for comfort. call light in reach. no needs voiced.
[2021-09-23 14:36] VITALS: BP 147/77; PULSE 61; RESP 17; TEMP 36.5; O2SAT 98
== END 2021-09-23 14:37 | disposition home or self-care (01) ==
PROVIDERS: Emergency Provider Emergency Medicine; PCP Family Medicine
DX: S39.012A Strain of muscle, fascia and tendon of lower back, initial encounter (principal); Z79.82 Long term (current) use of aspirin; Z79.899 Other long term (current) drug therapy; Z88.2 Allergy status to sulfonamides; F41.9 Anxiety disorder, unspecified; F32.A Depression, unspecified; K21.9 Gastro-esophageal reflux disease without esophagitis; Z95.0 Presence of cardiac pacemaker; R00.2 Palpitations; J84.9 Interstitial pulmonary disease, unspecified
CPT/HCPCS: 72100; 96372; 99283

== ENCOUNTER → 2021-12-31 16:56 | Outpatient (CLI) | payer BC, OTHER, SELFPAY ==
--- NOTE | 2021-12-31 16:58 | MM_ITS ---
PROCEDURE INFORMATION: Exam: MG Bilateral Screening 3D Mammography Exam date and time: 12/31/2021 4:49 PM Age: 56 years old Clinical indication: Screening examination. Her niece had breast cancer at age 47. TECHNIQUE: Imaging protocol: Bilateral Screening tomosynthesis and 2D mammography including computer-aided detection (CAD) when performed. COMPARISON: 1. MG MM DIG SCREENING MAMM BI W/CAD 12/26/2020 4:21 PM 2. MG MM DIG SCREENING MAMM BI W/CAD 10/31/2019 8:05 AM 3. MG SCBI MM Dig screening mamm BI w/CAD 05/08/2018 4:54 PM 4. MG DMSB DIG MAMM-SCREEN HAILEY W/CAD 09/08/2016 5:01 PM FINDINGS: MAMMOGRAPHY: Breast composition: There are scattered areas of fibroglandular density. Mass: No suspicious mass. Architectural distortion: None. Calcifications: No suspicious calcifications. Asymmetric density: None. Skin thickening: None. Axillary adenopathy: None. Other findings: Loop recorder in the upper inner left breast limits evaluation and accentuates the importance of clinical breast exam. IMPRESSION: No mammographic evidence of malignancy. Annual screening is recommended unless otherwise clinically indicated. ASSESSMENT: BI-RADS Category 1: Negative
== END ==
PROVIDERS: PCP Family Medicine; Visit Provider Family Medicine
DX: Z12.31 Encounter for screening mammogram for malignant neoplasm of breast (principal)
CPT/HCPCS: 77063; 77067

== ENCOUNTER → 2022-01-05 07:59 | Outpatient (POV) | payer BC, OTHER, SELFPAY | PROVIDERS: Visit Provider Dermatology | DX: Z00.00 Encounter for general adult medical examination without abnormal findings (principal) ==

== ENCOUNTER → 2022-03-09 11:59 | Outpatient (CLI) | payer BC, OTHER, SELFPAY ==
--- NOTE | 2022-03-09 | CA_ITS ---
FINAL REPORT TECHNIQUE: Color Doppler, duplex Doppler and compression sonography of the right lower extremity venous system was performed. CLINICAL HISTORY: PT FELL SEVERAL DAYS AGO BRUISING RT CALF,R/O DVT FINDINGS: There is no evidence of deep venous thrombosis from the level of the groin to the calf. The veins are patent and compressible. IMPRESSION: No evidence of deep venous thrombosis right lower extremity. Reviewed, Interpreted and Dictated by Carter Stokes III, MD Transcribed by Trudy Silva Authenticated and . [facility]
--- NOTE | 2022-03-09 12:08 | XR_ITS ---
FINAL REPORT CLINICAL HISTORY: PAIN, FALL 4 DAYS AGO FINDINGS: Right tibia fibula Two views were obtained. There is no acute fracture or dislocation. The joint spaces appear normal. No soft tissue abnormality is identified. IMPRESSION: No acute process. Reviewed, Interpreted and Dictated by Carter Stokes III, MD Transcribed by Trudy Silva Authenticated and [facility]
--- NOTE | 2022-03-09 12:08 | XR_ITS ---
FINAL REPORT CLINICAL HISTORY: PAIN, FALL4 DAYS AGO FINDINGS: Right knee Three views were obtained. There is no acute fracture or dislocation. There are mild degenerative changes. No soft tissue abnormality is identified. IMPRESSION: No acute process. Reviewed, Interpreted and Dictated by Carter Stokes III, MD Transcribed by Trudy Silva Authenticated and . [facility]
== END ==
PROVIDERS: PCP Psychiatry & Neurology Sleep Medicine; Visit Provider Nurse Practitioner Family
DX: M25.561 Pain in right knee (principal); M79.604 Pain in right leg
CPT/HCPCS: 73562; 73590; 93971

== ENCOUNTER → 2022-04-06 12:23 | Outpatient (CLI) | payer BC, OTHER, SELFPAY ==
[2022-04-06 14:11] LABS: Chloride 106 mmol/L (98-107); Potassium 4.6 mmoL/L (3.5-5.1); Sodium 140 mmol/L (136-145)
[2022-04-06 14:14] LABS: Anion Gap 11.6 mEq/L (5-15); Blood Urea Nitrogen 16 mg/dl (7-17); Calcium 8.9 mg/dl (8.4-10.2); Carbon Dioxide 27 mmol/L (22.0-30.0); Estimated Glomerular Filt Rate 74 ml/min (>60); GFR (African American) 90 ML/MIN (>60); Glucose 103 mg/dl (74-100)
[2022-04-06 14:22] LABS: NT Pro Brain Natriuretic Pep. 59.5 pg/mL (0-125)
== END ==
PROVIDERS: PCP Family Medicine; Visit Provider Internal Medicine Cardiovascular Disease
DX: I10 Essential (primary) hypertension (principal); E78.2 Mixed hyperlipidemia; R60.9 Edema, unspecified
CPT/HCPCS: 36415; 80048; 83880

== ENCOUNTER → 2022-05-21 14:08 | Outpatient (CLI) | payer BC, OTHER, SELFPAY ==
[2022-05-21 15:07] LABS: Basophils # 0.1 K/mm3 (0-0.2); Basophils % 1.2 % (0.1-2.0); Eosinophils # 0.2 K/mm3 (0.0-0.4); Eosinophils % 1.8 % (0.1-12.0); Hematocrit 39.3 % (37.0-47.0); Hemoglobin 13.1 g/dL (12.2-16.2); Lymphocytes # 3.3 K/mm3 (0.7-4.5); Lymphocytes % 35.8 % (10-50); Mean Corpuscular HGB Conc 33.2 g/dL (31.8-35.4); Mean Corpuscular Hemoglobin 29.9 pg (27.0-31.2); Mean Corpuscular Volume 89.9 fl (81-99); Monocytes # 0.5 K/mm3 (0.1-1.0); Monocytes % 5.1 % (1.7-9.3); Neutrophils # 5.1 K/mm3 (1.8-7.8); Neutrophils % 56.1 % (37.0-80.0); Platelet Count 425 K/mm3 (142-424); Red Blood Count 4.38 M/mm3 (4.20-5.40); Red Cell Distribution Width 13.5 % (11.5-17.5); White Blood Count 9.1 K/mm3 (4.8-10.8)
[2022-05-21 15:32] LABS: Alanine Aminotransferase 30 U/L (12-78); Albumin Level 4.6 g/dl (3.5-5.0); Alkaline Phosphatase 120 U/L (38-126); Anion Gap 16.5 mEq/L (5-15); Aspartate Amino Transferase 42 U/L (14-36); Bilirubin,Direct 0.2 mg/dl (0.0-0.4); Bilirubin,Indirect 0.3 mg/dL (0.0-0.9); Bilirubin,Total 0.5 mg/dl (0.2-1.3); Bilirubin,Unconjugated 0.3 mg/dL (0.0-1.1); Blood Urea Nitrogen 14 mg/dl (7-17); Calcium 9.3 mg/dl (8.4-10.2); Carbon Dioxide 30 mmol/L (22.0-30.0); Chloride 96 mmol/L (98-107); Chol/HDL Ratio 3.1 (1-3.5); Cholesterol 157 mg/dl (140-200); Estimated Glomerular Filt Rate 58 ml/min (>60); GFR (African American) 70 ML/MIN (>60); Glucose 97 mg/dl (74-100); HDL Cholesterol 50 mg/dl (40-60); Potassium 4.5 mmoL/L (3.5-5.1); Sodium 138 mmol/L (136-145); Total Protein,Serum 7.4 g/dl (6.3-8.2); Triglycerides 186 mg/dl (30-150); VLDL Cholesterol 37 mg/dL (0-40)
[2022-05-21 15:42] LABS: Direct LDL Cholesterol 82.58 mg/dL (100-129)
[2022-05-21 15:49] LABS: Free T4 (Free Thyroxine) 0.94 ng/dl (0.78-2.19)
[2022-05-21 16:02] LABS: Thyroid Stimulating Hormone 0.95 uIU/mL (0.465-4.68)
== END ==
PROVIDERS: PCP Family Medicine; Visit Provider Internal Medicine Cardiovascular Disease
DX: R55 Syncope and collapse (principal); I10 Essential (primary) hypertension; E78.2 Mixed hyperlipidemia; R60.9 Edema, unspecified
CPT/HCPCS: 36415; 80048; 80061; 80076; 83735; 84439; 84443; 85025

== ENCOUNTER → 2023-01-06 15:48 | Outpatient (CLI) | payer BC, OTHER, SELFPAY ==
--- NOTE | 2023-01-06 15:52 | MM_ITS ---
PROCEDURE INFORMATION: Exam: MG Bilateral Screening 3D Mammography Exam date and time: 01/06/2023 3:46 PM Age: 57 years old Clinical indication: Screening examination. Her niece had breast cancer at age 47. TECHNIQUE: Imaging protocol: Bilateral Screening tomosynthesis and 2D mammography including computer-aided detection (CAD) when performed. COMPARISON: 1. MG MM DIG SCREENING MAMM BI W/CAD 12/31/2021 4:49 PM 2. MG MM DIG SCREENING MAMM BI W/CAD 12/26/2020 4:21 PM 3. MG MM DIG SCREENING MAMM BI W/CAD 10/31/2019 8:05 AM 4. MG SCBI MM Dig screening mamm BI w/CAD 05/08/2018 4:54 PM FINDINGS: MAMMOGRAPHY: Breast composition: There are scattered areas of fibroglandular density. Mass: No suspicious mass. Architectural distortion: None. Calcifications: No suspicious calcifications. Asymmetric density: None. Skin thickening: None. Axillary adenopathy: None. Other findings: Loop recorder in the upper inner left breast limits evaluation and accentuates the importance of clinical breast exam. IMPRESSION: No mammographic evidence of malignancy. Annual screening is recommended unless otherwise clinically indicated. ASSESSMENT: BI-RADS Category 1: Negative
== END ==
PROVIDERS: PCP Family Medicine; Visit Provider Family Medicine
DX: Z12.31 Encounter for screening mammogram for malignant neoplasm of breast (principal)
CPT/HCPCS: 77063; 77067

== ENCOUNTER 2023-04-20 15:57 | Outpatient (CLI) | payer BC, SELFPAY ==
[2023-04-20 16:46] LABS: Basophils % 0.3 % (0.1-2.0); Eosinophils # 0.1 K/mm3 (0.0-0.4); Eosinophils % 1.3 % (0.1-12.0); Hematocrit 39.4 % (37.0-47.0); Hemoglobin 13.2 g/dL (12.2-16.2); Lymphocytes # 2.7 K/mm3 (0.7-4.5); Lymphocytes % 32.3 % (10-50); Mean Corpuscular HGB Conc 33.5 g/dL (31.8-35.4); Mean Corpuscular Hemoglobin 31.6 pg (27.0-31.2); Mean Corpuscular Volume 94.4 fl (81-99); Monocytes # 0.4 K/mm3 (0.1-1.0); Monocytes % 4.5 % (1.7-9.3); Neutrophils % 61.5 % (37.0-80.0); Platelet Count 323 K/mm3 (142-424); Red Blood Count 4.18 M/mm3 (4.20-5.40); Red Cell Distribution Width 13.8 % (11.5-17.5); White Blood Count 8.2 K/mm3 (4.8-10.8)
[2023-04-20 17:06] LABS: Alanine Aminotransferase 40 U/L (12-78); Albumin Level 4.4 g/dl (3.5-5.0); Alkaline Phosphatase 129 U/L (38-126); Anion Gap 11.1 mEq/L (5-15); Aspartate Amino Transferase 61 U/L (14-36); Bilirubin,Indirect 0.6 mg/dL (0.0-0.9); Bilirubin,Total 0.6 mg/dl (0.2-1.3); Bilirubin,Unconjugated 0.6 mg/dL (0.0-1.1); Blood Urea Nitrogen 8 mg/dl (7-17); Calcium 9.6 mg/dl (8.4-10.2); Carbon Dioxide 30 mmol/L (22.0-30.0); Chloride 104 mmol/L (98-107); Chol/HDL Ratio 3.5 (1-3.5); Cholesterol 161 mg/dl (140-200); Estimated Glomerular Filt Rate 65 ml/min (>60); GFR (African American) 78 ML/MIN (>60); Glucose 105 mg/dl (74-100); HDL Cholesterol 46 mg/dl (40-60); Potassium 4.1 mmoL/L (3.5-5.1); Sodium 141 mmol/L (136-145); Total Protein,Serum 6.9 g/dl (6.3-8.2); Triglycerides 112 mg/dl (30-150); VLDL Cholesterol 22 mg/dL (0-40)
[2023-04-20 17:16] LABS: Direct LDL Cholesterol 88.72 mg/dL (100-129)
[2023-04-20 17:39] LABS: Thyroid Stimulating Hormone 1.34 uIU/mL (0.465-4.68)
== END 2023-04-20 23:59 ==
LOC: LAB 16:01
PROVIDERS: PCP Family Medicine; Visit Provider Internal Medicine
DX: I11.0 Hypertensive heart disease with heart failure (principal); I50.30 Unspecified diastolic (congestive) heart failure; E78.5 Hyperlipidemia, unspecified; R06.00 Dyspnea, unspecified
CPT/HCPCS: 36415; 80048; 80061; 80076; 84439; 84443; 85025

== ENCOUNTER 2023-10-27 16:05 | Outpatient (CLI) | payer BC, SELFPAY ==
[2023-10-27 17:50] LABS: Basophils # 0.1 K/mm3 (0-0.2); Basophils % 0.7 % (0.1-2.0); Eosinophils # 0.1 K/mm3 (0.0-0.4); Eosinophils % 1.8 % (0.1-12.0); Hematocrit 40.3 % (37.0-47.0); Hemoglobin 13.1 g/dL (12.2-16.2); Lymphocytes % 36.8 % (10-50); Mean Corpuscular HGB Conc 32.5 g/dL (31.8-35.4); Mean Corpuscular Hemoglobin 30.4 pg (27.0-31.2); Mean Corpuscular Volume 93.4 fl (81-99); Mean Platelet Volume 8.8 fl (7.4-10.4); Monocytes # 0.5 K/mm3 (0.1-1.0); Monocytes % 5.6 % (1.7-9.3); Neutrophils # 4.5 K/mm3 (1.8-7.8); Neutrophils % 55.1 % (37.0-80.0); Platelet Count 315 K/mm3 (142-424); Red Blood Count 4.31 M/mm3 (4.20-5.40); Red Cell Distribution Width 14.5 % (11.5-17.5); White Blood Count 8.1 K/mm3 (4.8-10.8)
[2023-10-27 17:54] LABS: Alanine Aminotransferase 27 U/L (12-78); Albumin Level 4.1 g/dl (3.5-5.0); Alkaline Phosphatase 119 U/L (38-126); Anion Gap 11.5 mEq/L (5-15); Aspartate Amino Transferase 35 U/L (14-36); Bilirubin,Indirect 0.6 mg/dL (0.0-0.9); Bilirubin,Total 0.6 mg/dl (0.2-1.3); Bilirubin,Unconjugated 0.7 mg/dL (0.0-1.1); Blood Urea Nitrogen 15 mg/dl (7-17); Calcium 9.3 mg/dl (8.4-10.2); Carbon Dioxide 27 mmol/L (22.0-30.0); Chloride 103 mmol/L (98-107); Cholesterol 149 mg/dl (140-200); Estimated Glomerular Filt Rate 74 ml/min (>60); GFR (African American) 90 ML/MIN (>60); Glucose 97 mg/dl (74-100); HDL Cholesterol 49 mg/dl (40-60); Potassium 4.5 mmoL/L (3.5-5.1); Sodium 137 mmol/L (136-145); Total Protein,Serum 7.2 g/dl (6.3-8.2); Triglycerides 157 mg/dl (30-150); VLDL Cholesterol 31 mg/dL (0-40)
[2023-10-27 18:05] LABS: Direct LDL Cholesterol 74.37 mg/dL (100-129)
[2023-10-27 18:10] LABS: Free T4 (Free Thyroxine) 0.97 ng/dl (0.78-2.19)
[2023-10-27 18:21] LABS: Thyroid Stimulating Hormone 1.01 uIU/mL (0.465-4.68)
== END 2023-10-27 23:59 | disposition home or self-care (01) ==
LOC: LAB 16:06
PROVIDERS: PCP Family Medicine; Visit Provider Internal Medicine
DX: I50.33 Acute on chronic diastolic (congestive) heart failure (principal); I10 Essential (primary) hypertension; E78.2 Mixed hyperlipidemia; I51.89 Other ill-defined heart diseases; Z45.09 Encounter for adjustment and management of other cardiac device
CPT/HCPCS: 36415; 80048; 80061; 80076; 83735; 84439; 84443; 85025

== ENCOUNTER 2023-11-04 07:55 | Day surgery (SDC) | payer BC, SELFPAY ==
[2023-11-04 07:58] VITALS: BMI 38.3
[2023-11-04 08:22] VITALS: PULSE 69
[2023-11-04 08:25] VITALS: BP 116/73; PULSE 69; RESP 18; TEMP 36.9; O2SAT 95
[2023-11-04] MEDS: CEFAZOLIN SODIUM 1 GM in 0.9 % SODIUM CHLORIDE 50 ML IV (09:20)
[2023-11-04] MEDS: LIDOCAINE 2% W/EPI 1:100,000 20ML VIAL 20 ML SQ (09:20)
[2023-11-04 09:45] VITALS: BP 130/84; PULSE 72; RESP 18; O2SAT 100
[2023-11-04 10:05] VITALS: BP 146/86; PULSE 63; RESP 19; O2SAT 100
--- NOTE | 2023-11-08 08:55 | P.PCN_ITS ---
[facility] Loop Recorder Date: 11/04/23 Time: 10:00 Procedure Performed:: Removal of loop recorder. Indication:: End of service. Technique:: Patient was brought to cardiac Wood Fence Installer as an outpatient. After informed consent was obtained, the area of left sternal border over the device was anesthetized using lidocaine. A scalpel was then used to dissect down to the device and forceps used to remove the device. The incision was closed with surgical glue and Steri-Strips used to approximate the edges. Pressure dressing with Tegaderm applied. Patient tolerated the procedure without complications. Impression:: successful removal of loop recorder Serial Number:: N/A Plan:: Routing post-op care.
== END 2023-11-04 10:12 | disposition home or self-care (01) ==
PROVIDERS: PCP Family Medicine; Visit Provider Internal Medicine
DX: Z45.09 Encounter for adjustment and management of other cardiac device (principal); Z79.899 Other long term (current) drug therapy
CPT/HCPCS: 33286; J0690

== ENCOUNTER 2024-01-11 07:49 | Outpatient (CLI) | payer BC, SELFPAY ==
--- NOTE | 2024-01-11 07:51 | MM_ITS ---
PROCEDURE INFORMATION: Exam: MG Bilateral Screening 3D Mammography Exam date and time: 01/11/2024 7:49 AM Age: 58 years old Clinical indication: Screening examination TECHNIQUE: Imaging protocol: Bilateral Screening tomosynthesis and 2D mammography including computer-aided detection (CAD) when performed. COMPARISON: 1. MG MM DIG SCREENING MAMM BI W/CAD 01/06/2023 3:46 PM 2. MG MM DIG SCREENING MAMM BI W/CAD 12/31/2021 4:49 PM FINDINGS: MAMMOGRAPHY: Breast composition: The breasts are heterogeneously dense, which may obscure small masses. Mass: No suspicious masses. Architectural distortion: None. Calcifications: No suspicious calcifications. Asymmetric density: None. Skin thickening: None. Axillary adenopathy: None. IMPRESSION: No mammographic evidence of malignancy. Annual screening is recommended unless otherwise clinically indicated. ASSESSMENT: BI-RADS Category 1: Negative.
== END 2024-01-11 23:59 | disposition home or self-care (01) ==
LOC: RAD 07:49
PROVIDERS: PCP Family Medicine; Visit Provider Family Medicine
DX: Z12.31 Encounter for screening mammogram for malignant neoplasm of breast (principal)
CPT/HCPCS: 77063; 77067

== ENCOUNTER 2024-04-24 15:36 | Outpatient (CLI) | payer BC, SELFPAY ==
[2024-04-24 16:21] LABS: Basophils % 0.2 % (0.1-2.0); Eosinophils # 0.1 K/mm3 (0.0-0.4); Eosinophils % 1.3 % (0.1-12.0); Hematocrit 41.8 % (37.0-47.0); Hemoglobin 13.9 g/dL (12.2-16.2); Lymphocytes # 3.3 K/mm3 (0.7-4.5); Lymphocytes % 36.2 % (10-50); Mean Corpuscular HGB Conc 33.3 g/dL (31.8-35.4); Mean Corpuscular Hemoglobin 30.5 pg (27.0-31.2); Mean Corpuscular Volume 91.9 fl (81-99); Monocytes # 0.6 K/mm3 (0.1-1.0); Monocytes % 6.8 % (1.7-9.3); Neutrophils % 55.2 % (37.0-80.0); Platelet Count 310 K/mm3 (142-424); Red Blood Count 4.55 M/mm3 (4.20-5.40); Red Cell Distribution Width 12.9 % (11.5-17.5)
[2024-04-24 16:58] LABS: Alanine Aminotransferase 24 U/L (12-78); Albumin Level 4.7 g/dl (3.5-5.0); Alkaline Phosphatase 107 U/L (38-126); Anion Gap 12.4 mEq/L (5-15); Aspartate Amino Transferase 28 U/L (14-36); Bilirubin,Direct 0.2 mg/dl (0.0-0.4); Bilirubin,Indirect 0.3 mg/dL (0.0-0.9); Bilirubin,Total 0.5 mg/dl (0.2-1.3); Bilirubin,Unconjugated 0.3 mg/dL (0.0-1.1); Blood Urea Nitrogen 15 mg/dl (7-17); Calcium 9.9 mg/dl (8.4-10.2); Carbon Dioxide 29 mmol/L (22.0-30.0); Chloride 101 mmol/L (98-107); Chol/HDL Ratio 3.1 (1-3.5); Cholesterol 151 mg/dl (140-200); Estimated Glomerular Filt Rate 57 ml/min (>60); GFR (African American) 69 ML/MIN (>60); Glucose 96 mg/dl (74-100); HDL Cholesterol 49 mg/dl (40-60); Potassium 4.4 mmoL/L (3.5-5.1); Sodium 138 mmol/L (136-145); Total Protein,Serum 7.1 g/dl (6.3-8.2); Triglycerides 133 mg/dl (30-150); VLDL Cholesterol 27 mg/dL (0-40)
[2024-04-24 17:10] LABS: Direct LDL Cholesterol 70.53 mg/dL (100-129)
[2024-04-24 17:15] LABS: Free T4 (Free Thyroxine) 0.86 ng/dl (0.78-2.19)
[2024-04-24 17:28] LABS: Thyroid Stimulating Hormone 1.01 uIU/mL (0.465-4.68)
== END 2024-04-24 23:59 | disposition home or self-care (01) ==
LOC: LAB 15:37
PROVIDERS: PCP Family Medicine; Visit Provider Internal Medicine
DX: I10 Essential (primary) hypertension (principal); E78.2 Mixed hyperlipidemia
CPT/HCPCS: 36415; 80048; 80061; 80076; 84439; 84443; 85025

== ENCOUNTER 2024-11-22 08:21 | Outpatient (CLI) | payer BC, SELFPAY ==
--- OUTSIDE RECORDS SUMMARY | 2023-08-22 12:15 | XMS_ITS ---
[facility] [address] [facility] [address] [place] [id number] Care Team Providers Care Compensation Vice President Name Role Phone Aura Sandoval Primary Care Provider [phone] Allergies Allergen (clinical drug ingredient) Drug/Non Drug Allergy documented on EMR Reaction Allergy Type Onset Date Status Substance with sulfonamide structure and antibacterial mechanism of action (substance) Sulfa Antibiotics Unknown Drug Allergy Active REASON FOR VISIT 2 month check, Needs Tdap & shingles vaccine Medications Medication SIG (Take, Route, Frequency, Duration) Notes Start Date End Date Status Oxazepam 15 MG 1 cap(s) orally 3 times a day, prn 12/02/2021 Not-Taking Flonase Allergy Relief 50 MCG/ACT 1 spray(s) in each nostril once a day; Duration: 30 day(s) 08/05/2021 Not-Taking FiberCon 625 MG as directed No t-Taking Symbicort 80-4.5 MCG/ACT 2 puff(s) inhal ed 2 times a day; Duration: 30 day(s) 03/20/2018 Not-Taking Jardiance 10 MG 1 tablet Orally Once a day; Duration: 30 day(s) 04/21/2023 Not-Taking Albuterol Sulfate HFA 108 (90 Base) MCG/ACT 1 puff Inhalation every 4 hrs, prn 06/29/2023 Active DULoxetine HCl 30 MG 1 capsule Orally On ce a day; Duration: 90 days Active buPROPion HCl ER (XL) 300 MG TAKE 1 TABLET BY MOUTH ONCE DAILY; Duration: 90 Active Omeprazole 40 MG 1 tab once a day Active Poly-Iron 150 Forte 150-25-1 MG-MCG-MG TAKE 1 CAPSULE BY MOUTH ONCE DAILY; Duration: 90 Active Furosemide 40 MG 1 tab(s) orally once a day; Duration: 90 days Active Losartan Potassium 50 MG 1 tab(s) orally once a day; Duration: 30 day(s) Active Ventolin HFA 108 (90 Base) MCG/ACT 1-2 puff(s) inhaled 4 times a day, prn 09/29/2018 Active Atorvastatin Calcium 20 MG 1 tab(s) oral ly once a day; Duration: 30 day(s) Active Mee Allergy 180 MG 1 tablet swallow whole with water; do not take with fruit juices. Orally Once a day; Duration: 30 day(s) 08/22/2023 Active Aspirin Adult Low Dose 81 MG 1 tab orally at bedtime 07/24/2009 Active Nadolol 40 MG 1 tab(s) orally once a day; Duration: 30 day(s) Active Spironolactone 25 MG 1 tab(s) orally onc e a day; Duration: 30 day(s) Active Farxiga 10 MG 1 tablet Orally Once a day; Duration: 30 day(s) Active Problems Problem Type SNOMED Code ICD Code Onset Dates Problem Status W/U Status Risk Notes Problem Obese class II (807261258774 105) BMI 38.0-38.9,adult (Z68.38) Active confirmed Problem Allergy (773906958) Allergy, unspecified, initial encounter (T78.40XA) Active confirmed Problem Eruption of skin (138986815) Rash and other nonspecific skin eruption (R21) Active confirmed Vital Signs Blood pressure systolic 104 mm Hg 08/22/19 24 Blood pressure diastolic 70 mm Hg 024 Heart Rate 80 /min 08/22/2023 Height 71.25 in 08/22/2023 Weight 276.2 lbs 08/22/2023 BMI 38.25 kg/m2 08/22/2023 Encounters Encounter Location Date Provider Diagnosis [facility] [address] [facility] [address] [place] [address], [place] [phone] 08/22/2023 Aura Sandoval Essential hypertensi on I10 ; BMI 38.0-38.9,adult Z68.38 ; Allergy, unspecified, initial encounter T78.40XA and Rash and other nonspecific skin eruption R21 Assessments Encounter Date Diagnosis (ICD Code) Assessment Notes Treatment Notes Treatment Clinical Notes Section Notes 08/22/2023 Essential hypertension (ICD-10 - I10) 08/22/2023 BMI 38.0-38.9,adult (ICD-10 - Z68.38) 08/22/2023 Allergy, unspecified, initial encounter (ICD-10 - T78.40XA) 08/22/2023 Rash and other nonspecific skin eruption (ICD-10 - R21) Plan Of Treatment Medication Medication Name Sig Start Date Stop Date Notes Mee Allergy 180 MG 1 tablet swallow whole with water; do not take with fruit juices. Orally Once a day; Duration: 30 day(s) 08/22/2023 Next Appt Details Follow Up: 3 Months, Reason: Provider Name:Aura Maradiaga er, 11/22/2024 03:45:00 PM, [address] [facility] [address] [facility], [address] , [place], [place], [id number], Progress Notes * CRYSTAL BLACKMANDOB:1965 (59 yo F)Acc No.[id number]:08/22/2023 Progress Notes Patient: CRYSTAL BROWN Provider: Aura Sandoval M.D. :1965 A ge:58 Y S ex:Female Date:08/22/2023 Address:[address] [place] [address] [facility] [id number] Subjective: * Chief Complaints: * 1 . 2 month check. 2. Needs Tdap & shingles vaccine. * HPI: C ardiology: The patient is here for a check up on Hypertension. Pt states she occasionally check her BP and it is doing well. Pt states she has a rash on both arms and chest since Tuesday. Pt states she has taken Benadryl and that has stopped the itching. Pt states refills are not needed at this time. Denies : Chest Pain. D enies : Short of Breath. D enies : Dizziness. D enies : Palpitations. * ROS: D ERMATOLOGY: no R nick. n o H feroz. G ASTROENTEROLOGY: no N ausea. n o V omiting. n o D iarrhea.? U ROLOGY: no D ifficulty urinating. n o B lood in urine. * Medical History: A llergic rhinitis, Hyperlipidemia, Esophageal reflux, COVID- - December 2019, COVID 19 Vaccine, J&J, May 07, 2020. 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 * Hospitalization/Major Diagno stic Procedure: H MH- er for lightheaded 07/2015, H- chest pain 08/24-08/25/16. * Family History: F ather: 64 yrs, heart disease. M other: alive 76 yrs, heart disease. P aternal Grand Father: . P aternal Grand Mother: . M aternal Grand Father: . M aternal Grand Mother: . 2 sister(s) . 2 son(s) . . * Social History: C URRENT TOBACCO USE S moking Status: Patient does NOT smoke. C affeine: yes, frequency:daily. Exercise: no. Home smoke detector use: yes. Marital Status: . New since last visit: none. Occupation: yes. Past smoking status: no. Occup. exposure: none. Recreational drug use: no. Alcohol: no. Sexually active: yes. Travel ouside [place]: no. * Medications: T aking Farxiga 10 MG Tablet 1 tablet Orally Once a day , Taking Spironolactone 25 MG Tablet 1 tab(s) orally once a day , Taking Nadolol 40 MG Tablet 1 tab(s) orally once a day , Taking Aspirin Adult Low Dose 81 MG Tablet Delayed Release 1 tab orally at bedtime , Taking Atorvastatin Calcium 20 MG Tablet 1 tab(s) orally once a day , Taking Ventolin HFA 108 (90 Base) MCG/ACT Aerosol Solution 1-2 puff(s) inhaled 4 times a day, prn , Taking Losartan Potassium 50 MG Tablet 1 tab(s) orally once a day , Taking Furosemide 40 MG Tablet 1 tab(s) orally once a day , Taking Poly-Iron 150 Forte 150-25-1 MG-MCG-MG Capsule TAKE 1 CAPSULE BY MOUTH ONCE DAILY , Taking Omeprazole 40 MG Capsule Delayed Release 1 tab once a day , Taking buPROPion HCl ER (XL) 300 MG Tablet Extended Release 24 Hour TAKE 1 TABLET BY MOUTH ONCE DAILY , Taking DULoxetine HCl 30 MG Capsule Delayed Release Particles 1 capsule Orally Once a day , Taking Albuterol Sulfate HFA 108 (90 Base) MCG/ACT Aerosol Solution 1 puff Inhalation every 4 hrs, prn , Not-Taking Jardiance 10 MG Tablet 1 tablet Orally Once a day , Not-Taking Symbicort 80-4.5 MCG/ACT Aerosol 2 puff(s) inhaled 2 times a day , Not-Taking FiberCon 625 MG Tablet as directed , Not-Taking Flonase Allergy Relief 50 MCG/ACT Suspension 1 spray(s) in each nostril once a day , Not-Taking Oxazepam 15 MG Capsule 1 cap(s) orally 3 times a day, prn , Discontinued Promethazine-DM 6.25- 15 MG/5ML Syrup 5 ml as needed Orally every 6 hrs , Medication List reviewed and reconciled with the patient * Allergies: S ulfa Antibiotics. Objective: * Vitals: W t:276.2, Temp:98.5, BP:104/70, HR:80, Nurse:OLU, Ht: 71.25, BMI:38.25. * Examination: G eneral Examination: General Appearance: N AD, note weight loss. H EENT:?unremarkable. O ral cavity: n o lesions, mucosa moist and WNL, no erythema. N tyrel: ?supple, no lymphadenopathy. C hest: n ormal shape and expansion. H eart: R SR. Lungs: c lear to auscultation. N eurologic Exam: I ntact, gait normal. S kin:?fine maculopapular r nick of ventral forearms. P eripheral pulses: n ormal. E xtremities: t race l eg edema. Assessment: * Assessment: 1. E ssential hypertension - I10 (Primary) 2 . B MO 38.0-38.9,adult - Z68.38 3 . A llergy, unspecified, initial encounter - T78.40XA 4 .?Rash and other nonspecific skin eruption - R21 Plan: * Treatment: * Follow Up: 3 Months * Images: Billing Information: * Visit Code: 80439 Office Visit, Est Pt., Level 4. * Procedure Codes: * Electronic signature of Aura Sandoval MD on 11/22/2024 at 08:37 AM EDT Sign off status: Pending * Provider: Aura Sandoval M.D. Date: 0 08/22/2023 Generated for Printi ng/Faxing/eTransmitting on: 0 11/22/2024 08:37 AM EDT History and Physical Notes * HPI (History of Present Illness) Category Sub-Category Detail Notes Category Not es Cardiology Short of Breath Chest Pain Palpitations Dizziness Examination Category Sub-Category Detail Notes Category Not es General Examination HEENT: unremarkable Heart: RSR Lungs: clear to auscultatio n Extremities: trace leg edema General Appearance: NAD, note weight los s Skin: fine maculopapular r nick of ventral forearms Neurologic Exam: Intact, gait normal Neck: supple, no lymphaden opathy Oral cavity: no lesions, mucosa m oist and WNL, no erythema Peripheral pulses: normal Chest: normal shape and exp ansion
--- OUTSIDE RECORDS SUMMARY | 2023-11-24 12:15 | XMS_ITS ---
Author Organization [facility] Address [address] [place] [id number] Care Team Providers Care Endless Bed Drum Sander Name Role Phone Aura Sandoval Primary Care Provider Allergies Allergen (clinical drug ingredient) Drug/Non Drug Allergy documented on EMR Reaction Allergy Type Onset Date Status Substance with sulfonamide structure and antibacterial mechanism of action (substance) Sulfa Antibiotics Unknown Drug Allergy Active Results Component Value Reference Range Notes Glycohemoglobin A1c (in hous e) Reviewed date:11/28/2023 11:35:16 AM Interpretation:5.5 Performing Lab: Notes/Report: 5.5 glycohemoglobin 5.5% 5 - 6.5 % P-Comprehensive Metabolic Pa saúl (CMP) Reviewed date:11/28/2023 11:35:16 AM Interpretation:alk phos 129 Performing Lab: Notes/Report: Test performed by [facility] [address] [place] [address] , [address], [place] [address] German Crespo MD, E Learning Developer CLIA: [id number] Sodium 138 135-145 mmol/L Potassium 5.0 3.5-5.3 mmol/L Chloride 98 97-108 mmol/L CO2 28 22-32 mmol/L Glucose 86 65-99 mg/dL BUN 16 6-20 mg/dL Creatinine 0.97 0.50-1.00 mg/dL Calcium 9.8 8.6-10.4 mg/dL eGFR by Creatinine 68 >59 mL/min/1.73m2 Protein 6.9 6.0-8.3 g/dL Albumin 4.5 3.5-5.3 g/dL Alkaline Phosphatase 129 35-121 IU/L ALT (SGPT) 18 <5-47 IU/L AST (SGOT) 21 <5-40 IU/L Bilirubin, Total 0.3 <0.2-1.2 mg/dL A/G Ratio 1.9 1.1-2.5 REASON FOR VISIT 3 month check up, Needs labs, colon cancer screening, Tdap, & shingles vaccine Medications Medication SIG (Take, Route, Frequency, Duration) Notes Start Date End Date Status Symbicort 80-4.5 MCG/ACT 2 puff(s) inhal ed 2 times a day; Duration: 30 day(s) 03/20/2018 Not-Taking FiberCon 625 MG as directed No t-Taking Flonase Allergy Relief 50 MCG/ACT 1 spray(s) in each nostril once a day; Duration: 30 day(s) 08/05/2021 Not-Taking Oxazepam 15 MG 1 cap(s) orally 3 times a day, prn 12/02/2021 Not-Taking Jardiance 10 MG 1 tablet Orally Once a day; Duration: 30 day(s) 04/21/2023 Not-Taking DULoxetine HCl 30 MG 1 capsule Orally On ce a day; Duration: 90 days Active Albuterol Sulfate HFA 108 (90 Base) MCG/ACT 1 puff Inhalation every 4 hrs, prn 06/29/2023 Active Mee Allergy 180 MG 1 tablet swallow whole with water; do not take with fruit juices. Orally Once a day; Duration: 30 day(s) 08/22/2023 Active buPROPion HCl ER (XL) 300 MG TAKE 1 TABLET BY MOUTH ONCE DAILY; Duration: 90 days Active Poly-Iron 150 Forte 150-25-1 MG-MCG-MG TAKE 1 CAPSULE BY MOUTH ONCE DAILY; Duration: 90 Active Omeprazole 40 MG 1 tab once a day Active Ventolin HFA 108 (90 Base) MCG/ACT 1-2 puff(s) inhaled 4 times a day, prn 09/29/2018 Active Losartan Potassium 50 MG 1 tab(s) orally once a day; Duration: 30 day(s) Active Furosemide 40 MG 1 tab(s) orally once a day; Duration: 90 days Active Atorvastatin Calcium 20 MG 1 tab(s) oral ly once a day; Duration: 30 day(s) Active Farxiga 10 MG 1 tablet Orally Once a day; Duration: 30 day(s) Active Spironolactone 25 MG 1 tab(s) orally onc e a day; Duration: 30 day(s) Active Nadolol 40 MG 1 tab(s) orally once a day; Duration: 30 day(s) Active Aspirin Adult Low Dose 81 MG 1 tab orally at bedtime 07/24/2009 Active Immunizations Vaccine Route Administration Date Status Comme nts Tetanus Tdap-Adacel (over 7yrs) IM Intramuscular 11/24/2023 Administered Vital Signs Blood pressure systolic 110 mm Hg 11/24/19 24 Blood pressure diastolic 76 mm Hg 024 Heart Rate 66 /min 11/24/2023 Height 71.25 in 11/24/2023 Weight 276.6 lbs 11/24/2023 BMI 38.30 kg/m2 11/24/2023 Encounters Encounter Location Date Provider Diagnosis [facility] [address] [facility] [address] [facility] [address] [place] [id number] 11/24/2023 Aura Sandoval Essential hypertensi on I10 ; BMI 38.0-38.9,adult Z68.38 and Encounter for immunization Z23 Assessments Encounter Date Diagnosis (ICD Code) Assessment Notes Treatment Notes Treatment Clinical Notes Section Notes 11/24/2023 Essential hypertension (ICD-10 - I10) 11/24/2023 BMI 38.0-38.9,adult (ICD-10 - Z68.38) 11/24/2023 Encounter for immunization (ICD-10 - Z23) Plan Of Treatment Next Appt Details Follow Up: 5 months, Reason: Provider Name:Aura Maradiaga er, 11/22/2024 03:45:00 PM, [address] [facility] [address] [facility], [address], [place], [id number], Progress Notes * CRYSTAL BLACKMANDOB:1965 (59 yo F)Acc No.[id number]:11/24/2023 Progress Notes Patient: CRYSTLA BROWN Provider: Aura Sandoval M.D. :1965 A ge:58 Y S ex:Female Date:11/24/2023 Address:[facility] [place], [id number] Subjective: * Chief Complaints: * 1 . 3 month check up. 2. Needs labs, colon cancer screening, Tdap, & shingles vaccine. * HPI: C ardiology: The patient is here for a check up on Hypertension. Pt states she is doing good and except for episode of nose bleeds. Pt states she is not fasting. 58 year old female presents with c/o Short of Breath. Denies : Chest Pain. D enies : Dizziness. D enies : [...] 09/26/18, Neg colonoscopy, neg EGD (BAJWA'S RESOLVED) 11/23/2019, loop recorder removed 11/07/23 . * Hospitalization/Major Diagno stic Procedure: [facility]- er for lightheaded 07/2015, [facility]- chest pain 08/24-08/25/16. * Family History: F [...] Travel ouside [place]: no. * Medications: T akinleena Farxiga 10 MG Tablet 1 tablet Orally [...] tab(s) orally once a day , Taking Omeprazole 40 MG Capsule Delayed Release 1 tab once a day , Taking DULoxetine HCl 30 MG Capsule Delayed Release Particles 1 capsule Orally Once a day , Taking Albuterol Sulfate HFA 108 (90 Base) MCG/ACT Aerosol Solution 1 puff Inhalation every 4 hrs, prn , Taking Mee Allergy 180 MG Tablet 1 tablet swallow whole with water; do not take with fruit juices. Orally Once a day , Taking buPROPion HCl ER (XL) 300 MG Tablet Extended Release 24 Hour TAKE 1 TABLET BY MOUTH ONCE DAILY , Taking Poly-Iron 150 Forte 150-25-1 MG-MCG-MG Capsule TAKE 1 CAPSULE BY MOUTH ONCE DAILY , Not-Taking Jardiance 10 MG Tablet 1 [...] orally 3 times a day, prn , Medication List reviewed and reconciled with the patient * Allergies: S ulfa Antibiotics. Objective: * Vitals: W t:276.6, Temp:98.1, BP:110/76, HR:66, Nurse:OLU, Ht: 71.25, BMI:38.30. * Examination: G eneral Examination: General Appearance: N AD, note weight loss. H EENT:?unremarkable. O ral cavity: n o lesions, mucosa moist and WNL, no erythema. N tyrel: ?supple, no lymphadenopathy. C hest: n ormal shape and expansion. H eart: R SR. Lungs: c lear to auscultation. A bdomen: soft and nontender, no organomegaly or masses. N eurologic Exam: I ntact, gait normal. S kin: n ormal, no rash. P eripheral pulses: n ormal. B ack: normal. E xtremities: t race l eg edema. ? Assessment: * Assessment: 1. E ssential hypertension - I10 (Primary) 2 . B ME 38.0-38.9,adult - Z68.38 3 . E ncounter for immunization - Z23 Plan: * Treatment: Value Reference Range A /G Ratio 1.9 1.1-2.5 - * A lbumin 4.5 3.5-5.3 - g/dL * A lkaline Phosphatase 129 H 35-121 - IU/L * A LT (SGPT) 18 <5-47 - IU/L * A ST (SGOT) 21 <5-40 - IU/L * B ilirubin, Total 0.3 <0.2-1.2 - mg/dL * B UN 16 6-20 - mg/dL * C alcium 9.8 8.6-10.4 - mg/dL * C hloride 98 97-108 - mmol/L * C O2 28 22-32 - mmol/L * C reatinine 0.97 0.50-1.00 - mg/dL * G lucose 86 65-99 - mg/dL * P otassium 5.0 3.5-5.3 - mmol/L * S odium 138 135-145 - mmol/L * P rotein 6.9 6.0-8.3 - g/dL * e GFR by Creatinine 68 >59 - mL/min/1.73m2 * Ashlee Boone 11/28/2023 11:35 :09 AM >See phone encounter 2.?BMI 38.0-38.9,adult?LAB: Glycohemoglobin A1c (in house) (Collection Date & Time - 11/24/2023)? 5.5* Value Reference Range g lycohemoglobin 5.5% 5 - 6.5 % * Jasmine Langford 11/24/2023 5:4 7:12 PM > Ashlee Boone 11/28/2023 11:35:09 AM >See phone encounter * Immunizations: Tetanus Tdap-Adacel (over 7yrs) : 0.5 mL (Route: Intramuscular) given by Jasmine Langford on Left Deltoid (Encounter for immunization) * Procedure Codes: 3 6416 CAPILLARY BLOOD DRAW, [address]139 GLYCATED HEMOGLOBIN TEST, Modifiers: QW * Follow Up: 5 months * Images: Billing Information: * Visit Code: 60565 Office Visit, Est Pt., Level 4. * Procedure Codes: 44325 CAPILLARY BLOOD DRAW. 98937 GLYCATED HEMOGLOBIN TEST. Modifiers: QW * Electronic signature of Aura Sandoval MD on 11/22/2024 at 08:36 AM EDT Sign off status: Pending * Provider: Aura Sandoval M.D. Date: 0 11/24/2023 Generated for Pati ng/Alec/eTransmitting on: 0 11/22/2024 08:36 AM EDT History and Physical Notes * HPI (History of Present Illness) Category Sub-Category Detail Notes Category Not es Cardiology Short of Breath Chest Pain Palpitations Dizziness Examination Category Sub-Category Detail Notes Category Not es General Examination HEENT: unremarkable Heart: RSR Lungs: clear to auscultatio n Abdomen: soft and nontender, no organomegaly or masses Extremities: trace leg edema General Appearance: NAD, note weight los s Skin: normal, no rash Neurologic Exam: Intact, gait normal Neck: supple, no lymphaden opathy Oral cavity: no lesions, mucosa m oist and WNL, no erythema Peripheral pulses: normal Back: normal Chest: normal shape and exp ansion
--- OUTSIDE RECORDS SUMMARY | 2024-02-02 10:30 | XMS_ITS ---
Author Organization [facility] Address [address] [place] [id number] Care Team Providers Care Diabetes Manager Name Role Phone Aura Sandoval Primary Care Provider Nickolas Leann Unavailable [phone] Allergies Allergen (clinical drug ingredient) Drug/Non Drug Allergy documented on EMR Reaction Allergy Type Onset Date Status Substance with sulfonamide structure and antibacterial mechanism of action (substance) Sulfa Antibiotics Unknown Drug Allergy Active Results Component Value Reference Range Notes Influenza Screen (in house) Reviewed date:02/02/2024 02:55:23 PM Interpretation:neg Performing Lab: Notes/Report: neg results neg CBC Fingerstick (in house) Reviewed date:02/02/2024 02:55:23 PM Interpretation: Performing Lab: Notes/Report: wbc 9.2 3.5 - 10 lym 12.1 15 - 50 mid 2.9 2 - 15 gran 85.0 35 - 80 rbc 4.60 3.5 - 5.5 hgb 13.7 11.5 - 16.5 hct 41.2 35 - 55 mcv 89.4 75 - 100 mch 29.7 25 - 35 mchc 33.2 31 - 38 plat 193 100 - 400 Covid test (in house) Reviewed date:02/02/2024 02:55:23 PM Interpretation:pos Performing Lab: Notes/Report: pos Result: pos REASON FOR VISIT congestion Medications Medication SIG (Take, Route, Frequency, Duration) Notes Start Date End Date Status buPROPion HCl ER (XL) 300 MG TAKE 1 TABLET BY MOUTH ONCE DAILY; Duration: 90 days Active Albuterol Sulfate HFA 108 (90 Base) MCG/ACT 1 puff Inhalation every 4 hrs, prn 06/29/2023 Active Mee Allergy 180 MG 1 tablet swallow whole with water; do not take with fruit juices. Orally Once a day; Duration: 30 day(s) 08/22/2023 Active DULoxetine HCl 30 MG 1 capsule Orally On ce a day; Duration: 90 days Active Poly-Iron 150 Forte 150-25-1 MG-MCG-MG TAKE 1 CAPSULE BY MOUTH ONCE DAILY; Duration: 90 Active Omeprazole 40 MG 1 tab once a day Active Losartan Potassium 50 MG 1 tab(s) orally once a day; Duration: 30 day(s) Active Furosemide 40 MG 1 tab(s) orally once a day; Duration: 90 days Active Atorvastatin Calcium 20 MG 1 tab(s) oral ly once a day; Duration: 30 day(s) Active Ventolin HFA 108 (90 Base) MCG/ACT 1-2 puff(s) inhaled 4 times a day, prn 09/29/2018 Active Paxlovid (300/100) 20 x 150 MG & 10 x 100MG 3 tablets Orally Twice a day; Duration: 5 day(s) 02/02/2024 Active Farxiga 10 MG 1 tablet Orally Once a day; Duration: 30 day(s) Active Nadolol 40 MG 1 tab(s) orally once a day; Duration: 30 day(s) Active Aspirin Adult Low Dose 81 MG 1 tab orally at bedtime 07/24/2009 Acti ve Vital Signs Blood pressure systolic 120 mm Hg 02/02/20 24 Blood pressure diastolic 78 mm Hg 024 Heart Rate 98 /min 02/02/2024 Height 71.25 in 02/02/2024 Weight 275.4 lbs 02/02/2024 BMI 38.14 kg/m2 02/02/2024 Encounters Encounter Location Date Provider Diagnosis [facility] [address] [place], [place] [id number] 02/02/2024 Leann Olmos COVID-19 U07.1 Assessments Encounter Date Diagnosis (ICD Code) Assessment Notes Treatment Notes Treatment Clinical Notes Section Notes 02/02/2024 COVID-19 (ICD-10 - U07.1) Fluids, rest, supportive measures for fever and symptoms relief, discussed covid vitamins and isolation period. Plan Of Treatment Medication Medication Name Sig Start Date Stop Date Notes Paxlovid (300/100) 20 x 150 MG & 10 x 100MG 3 tablets Orally Twice a day; Duration: 5 day(s) 02/02/2024 Treatment Notes Assessment Notes COVID-19 Fluids, rest, suppor tive measures for fever and symptoms relief, discussed covid vitamins and isolation period. Next Appt Details Follow Up: prn, Reason: Provider Name:Aura Maradiaga er, 11/22/2024 03:45:00 PM, [address], [address], [place], [place], [phone], Progress Notes * CRYSTAL BLACKMANDOB:1965 (59 yo F)Acc No.[id number]:02/02/2024 Progress Notes Patient: CRYSTAL BROWN Provider: ELIANA Hawley :1965 A ge:59 Y S ex:Female Date:02/02/2024 Address:[address] [place] [address] [facility] [facility] [id number] Pcp:Aura Sandoval Subjective: * Chief Complaints: * 1 . Congestion. * HPI: E NT/respiratory: 59 year old female presents with c/o sore throat f rom drainage. c/o cough f rom drainage. c/o nasal congestion c lear drainage, yellow drainage. c/o Fever 1 04 this morning. c/o body aches. Denies : ear pain. D enies : headache. Pt sts her symptoms started late yesterday. * ROS: D ERMATOLOGY: no R nick. n o H feroz. G ASTROENTEROLOGY: no N ausea. n o V omiting. n o D iarrhea.? U ROLOGY: no D ifficulty urinating. n o B lood in urine. * Medical History: A llergic rhinitis, Hyperlipidemia, Esophageal reflux, COVID-19 - December 2019, COVID 19 Vaccine, [employer], May 07, 2020. 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 * Hospitalization/Major Diagno stic Procedure: H - er for lightheaded 07/2015, [facility]- chest pain 08/24-08/25/16. * Family History: F [...] tablet Orally Once a day , Taking Nadolol 40 MG [...] 1 CAPSULE BY MOUTH ONCE DAILY , Medication List reviewed and reconciled with the patient * Allergies: S ulfa Antibiotics. Objective: * Vitals: W t:275.4, Temp:99.6, BP:120/78, HR:98, Nurse:RAUL, Ht: 71.25, BMI:38.14. * Examination: E NT/Respiratory: General Appearance: N AD. E ars: a uditory canals normal bilaterally, TM's WNL. N ose : turbinates red, congested. O ral cavity : erythema without exudate on pharynx. N tyrel : n o cervical lymphadenopathy. H eart : R RR, normal S1 S2, no murmurs. L ungs: c lear to auscultation bilaterally. ? Assessment: * Assessment: 1. C LEOPOLD-19 - U07.1 (Primary) Plan: * Treatment: Value Reference Range r esults neg * Jessica Cheney 02/02/2024 2:41: 49 PM > Provider reviewed results while patient in office. ?LAB: CBC Fingerstick (in house) (Collection Date & Time - 02/02/2024)* Value Reference Range w bc 9.2 3.5 - 10 * l ym 12.1 15 - 50 * m id 2.9 2 - 15 * g ran 85.0 35 - 80 * r bc 4.60 3.5 - 5.5 * h gb 13.7 11.5 - 16.5 * h ct 41.2 35 - 55 * m cv 89.4 75 - 100 * m ch 29.7 25 - 35 * m chc 33.2 31 - 38 * p lat 193 100 - 400 * Jessica Cheney 02/02/2024 2:40: 45 PM > Provider reviewed results while patient in office. ?LAB: Covid test (in house) (Collection Date & Time - 02/02/2024)?pos* Value Reference Range R esult: pos * Jessica Cheney 02/02/2024 2:41: 29 PM > Provider reviewed results while patient in office. Notes: Fluids, rest, supportive measures for fever and symptoms relief, discussed covid vitamins and isolation period.?? * Procedure Codes: 3 7733 CAPILLARY BLOOD DRAW, 55782 CBC WITH AUTO DIFF, 64130 Flu Test- Nasal Swab, Modifiers: QW , 31407 COVID TEST IN HOUSE, Modifiers: QW * Follow Up: p rn * Images: Billing Information: * Visit Code: 27492 Office Visit, Est Pt., Level 3. * Procedure Codes: 80016 CAPILLARY BLOOD DRAW. 53441 CBC WITH AUTO DIFF. 20086 Flu Test- Nasal Swab. Modifiers: QW 02489 COVID TEST IN HOUSE. Modifiers: QW * Electronic signature of ELIANA Bernal on 11/22/2024 at 08:37 AM EDT Sign off status: Pending * Provider: ELIANA Hawley Date: 1 04/04/2023 Generated for Printi ng/Famikelg/eTransmitting on: 0 11/22/2024 08:37 AM EDT History and Physical Notes * HPI (History of Present Illness) Category Sub-Category Detail Notes Category Not es ENT/respiratory sore throat from drainage Pt sts her symptoms started late yesterday ear pain cough from drainage Fever 104 this morning headache nasal congestion clear drainage, yell ow drainage body aches Examination Category Sub-Category Detail Notes Category Not es ENT/Respiratory Oral cavity : erythema without exudate on pharynx Ears: auditory canals norm al bilaterally, TM's WNL Neck : no cervical lymphade nopathy Heart : RRR, normal S1 S2, n o murmurs Lungs: clear to auscultatio n bilaterally General Appearance: NAD Nose : turbinates red, sushil ested
--- OUTSIDE RECORDS SUMMARY | 2024-02-24 06:30 | XMS_ITS ---
[facility] Address [address] [facility] [address] [place] [id number] Care Team Providers Care Artificial Flowers Supervisor Name Role Phone Aura Sandoval Primary Care Provider Shaan Joseph Unavailable [phone] Allergies Allergen (clinical drug ingredient) Drug/Non Drug Allergy documented on EMR Reaction Allergy Type Onset Date Status Substance with sulfonamide structure and antibacterial mechanism of action (substance) Sulfa Antibiotics Unknown Drug Allergy Active Results Component Value Reference Range Notes Urinalysis - Inhouse Reviewed date:02/24/2024 11:13:15 AM Interpretation: Performing Lab: Notes/Report: Color/Clarity dark yellow/orange Leuk 1+ Nitrite pos Urobili 3.2 Protein 2+ pH 5.5 Blood 3+ Sp. Gr. 1.020 Ketone neg Bili neg Gluc 3+ TEN-UTI panel Reviewed date:02/27/2024 05:54:47 PM Interpretation:sensitive Performing Lab: Notes/Report: sensitive REASON FOR VISIT possible uti Medications Medication SIG (Take, Route, Frequency, Duration) Notes Start Date End Date Status Omeprazole 40 MG 1 tab once a day Active Furosemide 40 MG 1 tab(s) orally once a day; Duration: 90 days Active Losartan Potassium 50 MG 1 tab(s) orally once a day; Duration: 30 day(s) Active Ventolin HFA 108 (90 Base) MCG/ACT 1-2 puff(s) inhaled 4 times a day, prn 09/29/2018 Active Atorvastatin Calcium 20 MG 1 tab(s) oral ly once a day; Duration: 30 day(s) Active Macrobid 100 MG 1 capsule with food Orally every 12 hrs; Duration: 5 day(s) 02/24/2024 Active Aspirin Adult Low Dose 81 MG 1 tab orally at bedtime 07/24/2009 Acti ve Nadolol 40 MG 1 tab(s) orally once a day; Duration: 30 day(s) Active Farxiga 10 MG 1 tablet Orally Once a day; Duration: 30 day(s) Active Poly-Iron 150 Forte 150-25-1 MG-MCG-MG TAKE 1 CAPSULE BY MOUTH ONCE DAILY; Duration: 90 Active buPROPion HCl ER (XL) 300 MG TAKE 1 TABLET BY MOUTH ONCE DAILY; Duration: 90 days Active Mee Allergy 180 MG 1 tablet swallow whole with water; do not take with fruit juices. Orally Once a day; Duration: 30 day(s) 08/22/2023 Active Albuterol Sulfate HFA 108 (90 Base) MCG/ACT 1 puff Inhalation every 4 hrs, prn 06/29/2023 Active DULoxetine HCl 30 MG 1 capsule Orally On ce a day; Duration: 90 days Active Vital Signs Blood pressure systolic 120 mm Hg 02/24/20 24 Blood pressure diastolic 78 mm Hg 024 Heart Rate 96 /min 02/24/2024 Height 71.25 in 02/24/2024 Weight 276.4 lbs 02/24/2024 BMI 38.28 kg/m2 02/24/2024 Encounters Encounter Location Date Provider Diagnosis [facility] [address] [facility] [address] [facility] [address] [place] [id number] 02/24/2024 Joseph Gilman Acute UTI N39.0 Assessments Encounter Date Diagnosis (ICD Code) Assessment Notes Treatment Notes Treatment Clinical Notes Section Notes 02/24/2024 Acute UTI (ICD-10 - N39.0) Plan Of Treatment Medication Medication Name Sig Start Date Stop Date Notes Macrobid 100 MG 1 capsule with food Orally every 12 hrs; Duration: 5 day(s) 02/24/2024 Next Appt Details Follow Up: via phone to repo rt test results, Reason: Provider Name:Aura Maradiaga er, 11/22/2024 03:45:00 PM, [address] [facility] [address] [facility], [address], [place], [id number], Progress Notes * CHRISTIE BLACKMAN:1965 (59 yo F)Acc No.[id number]:02/24/2024 Progress Notes Patient: CRYSTAL BROWN Provider: Rosa Garduno M.D. :1965 A ge:59 Y S ex:Female Date:02/24/2024 Address:[facility] [place], [id number] Pcp:Aura Sandoval Subjective: * Chief Complaints: * 1 . Possible uti. * HPI: U rology: 59 year old female presents with c/o frequent urination P t complains of urin frequency that started yesterday. Pt states she has also noticed a pink tinge to urine . Pt did take Azo last night to help relieve sx's. * ROS: C ARDIOLOGY: no D izziness. n o C hest pain. D ERMATOLOGY: no R nick. n o H feroz. G ASTROENTEROLOGY: no N ausea. n o V omiting. * Medical History: A llergic rhinitis, Hyperlipidemia, Esophageal reflux. 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 * Hospitalization/Major Diagno stic Procedure: H - er for lightheaded 07/2015, [facility]- chest pain 08/24-. * Family History: F ather: 64 yrs, [...] 1 CAPSULE BY MOUTH ONCE DAILY , Discontinued Paxlovid (300/100) 20 x 150 MG & 10 x 100MG Tablet Therapy Pack 3 tablets Orally Twice a day , Medication List reviewed and reconciled with the patient * Allergies: S ulfa Antibiotics. Objective: * Vitals: W t:276.4, Temp:98.3, BP:120/78, HR:96, Nurse:justine, Ht: 71.25, BMI:38.28. * Examination: G eneral Examination: General Appearance: N AD. H eart: R SR. L ungs:?clear to auscultation. B ack: no CVA tenderness. Assessment: * Assessment: 1. A cute UTI - N39.0 (Primary) Plan: * Treatment: Value Reference Range C olor/Clarity dark yellow/orange * L euk 1+ * N itrite pos * U robili 3.2 * P rotein 2+ * p H 5.5 * B lood 3+ * S p. Gr. 1.020 * K etone neg * B leander neg * G oralia 3+ * Jessica Cheney 02/24/2024 10:4 4:25 AM > Provider reviewed results while patient in office. ?LAB: TEN-UTI panel (Collection Date & Time - 02/24/2024)?sensitive* Ashlee Boone 02/27/2024 4:07 :56 PM > pt started on MacrobidKingYaneth 02/27/2024 5:54:06 PM > Pt informed * Procedure Codes: 8 1002 Urinalysis, no micro * Follow Up: v ia phone to report test results * Images: Billing Information: * Visit Code: 93369 Office Visit, Est Pt., Level 3. * Procedure Codes: 18755 Urinalysis, no micro. * Electronic signature of Barbara Garduno MD on 11/22/2024 at 08:36 AM EDT Sign off status: Pending * Provider: Rosa Garduno M.D. Date: 1 04/26/2023 Generated for Hilton kuhn/Alec/eTransmitting on: 0 11/22/2024 08:36 AM EDT History and Physical Notes * HPI (History of Present Illness) Category Sub-Category Detail Notes Category Not es Urology frequent urination Pt complains of urin frequency that started yesterday. Pt states she has also noticed a pink tinge to urine . Pt did take Azo last night to help relieve sx's Examination Category Sub-Category Detail Notes Category Not es General Examination Heart: RSR Lungs: clear to auscultatio n General Appearance: NAD Back: no CVA tenderness
--- OUTSIDE RECORDS SUMMARY | 2024-11-22 08:37 | XMS_ITS | Patient Health Record ---
Author Organization [facility] Address [address] [place] [id number] Care Team Providers Care Economic Analyst Name Role Phone Aura Sandoval Primary Care Provider [phone] Shaan Joseph Unavailable [phone] Leann Olmos Unavailable [phone] Allergies Allergen (clinical drug ingredient) Drug/Non Drug [...] 129 Performing Lab: Notes/Report: Test performed by [facility] [address] [place] [address] , [address], [place] [address] German Crespo MD, Resource Forester CLIA: [id number] Sodium 138 135-145 mmol/L Potassium 5.0 3.5-5.3 [...] 0.3 <0.2-1.2 mg/dL A/G Ratio 1.9 1.1-2.5 Influenza Screen (in house) Reviewed date:02/02/2024 02:55:23 [...] Interpretation:pos Performing Lab: Notes/Report: pos Result: pos Urinalysis - Inhouse Reviewed date:02/24/2024 11:13:15 AM Interpretation: Performing Lab: Notes/Report: Color/Clarity dark yellow/orange Leuk 1+ Nitrite pos Urobili 3.2 Protein 2+ pH 5.5 Blood 3+ Sp. Gr. 1.020 Ketone neg Bili neg Gluc 3+ TEN-UTI panel Reviewed date:02/27/2024 05:54:47 PM Interpretation:sensitive Performing Lab: Notes/Report: sensitive Mammogram Reviewed date:01/19/2024 01:02:12 PM Interpretation:Negative, annual f/u Performing Lab: Notes/Report: Negative, annual f/u result Negative, annual f/u Medications Medication SIG (Take, Route, Frequency, Duration) Notes Start Date End Date Status Mee Allergy 180 MG 1 tablet swallow whole with water; do not take with fruit juices. Orally Once a day; Duration: 30 day(s) 08/22/2023 Active Albuterol Sulfate HFA 108 (90 Base) MCG/ACT 1 puff Inhalation every 4 hrs, prn 06/29/2023 Active Macrobid 100 MG 1 capsule with food Orally every 12 hrs; Duration: 5 day(s) 02/24/2024 Active Omeprazole 40 MG 1 tab once a day Active Furosemide 40 MG 1 tab(s) orally once a day; Duration: 90 days Active Losartan Potassium 50 MG 1 tab(s) orally once a day; Duration: 30 day(s) Active buPROPion HCl ER (XL) 300 MG TAKE 1 TABLET BY MOUTH ONCE DAILY; Duration: 90 days Active Ventolin HFA 108 (90 Base) MCG/ACT 1-2 puff(s) inhaled 4 times a day, prn 09/29/2018 Active Poly-Iron 150 Forte 150-25-1 MG-MCG-MG 1 capsule Orally daily; Duration: 90 days Active Atorvastatin Calcium 20 MG 1 tab(s) oral ly once a day; Duration: 30 day(s) Active Aspirin Adult Low Dose 81 MG 1 tab orally at bedtime 07/24/2009 Acti ve DULoxetine HCl 30 MG 1 capsule Orally On ce a day; Duration: 14 days Active Nadolol 40 MG 1 tab(s) orally once a day; Duration: 30 day(s) Active Farxiga 10 MG 1 tablet Orally Once a day; Duration: 30 day(s) Active Immunizations Vaccine Route Administration Date Status Comme nts COVID 19 Scott Unknown 05/07/2020 Administered COVID 19 Scott Unknown 02/25/2021 Administered Tetanus Tdap-Adacel (over 7yrs) IM Intramuscular 09/25/2012 Administered Tetanus Tdap-Adacel (over 7yrs) IM Intramuscular 11/24/2023 Administered xFlu shot-36 months and older IM Intramuscular 11/16/2008 Administered Problems Problem Type SNOMED Code ICD Code Onset Dates Problem Status W/U Status Risk Notes Problem Hypokalemia (32583092) Hypokalemia (E87.6) Active confirmed Problem Hyperkalemia (86658749) Hyperkalemia (E87.5) Active confirmed Problem Essential hypertension (69491550) Essential hypertension (I10) Active confirmed Problem Hypoglycemia (632570935) Hypoglycemia (E16.2) Active confirmed Problem Supraventricular tachycardia (2428838) SVT (supraventricul ar tachycardia) (I47.1) Active confirmed Problem Mixed anxiety and depressive disorder (636940336) Depression with anxiety (F41.8) Active confirmed Problem 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, unspecified (E04.9) Active confirmed Problem Anxiety disorder (140150225) Anxiety disorder, unspecified (F41.9) Active confirmed Problem Bajwa's esophagus (017547560) Bajwa's esophagus without dysplasia (K22.70) Active confirmed Problem Eruption of skin (120739432) Rash and other nonspecific skin eruption (R21) Active confirmed Problem Allergy (417173567) Allergy, unspecified, initial encounter (T78.40XA) Active confirmed Problem Hyperlipidemia (45328900) Hyperlipidemia, unspecified (E78.5) Active confirmed Problem New daily persistent headache (423614748760288) New daily persistent headache (G44.52) Active confirmed Problem Obese class II (546670889499664) BMI 38.0-38.9,adult (Z68.38) Active confirmed Problem Abnormal gait (55246632) Imbalance (R26.89) Active confirmed Problem Body mass index 40+ - severely obese (819577457) Body mass index (BMI) of 40.1 to 44.9 in adult (Z68.41) Active confirmed Problem Obese class II (376577096360812) BMI 39.0-39.9,adult (Z68.39) Active confirmed Problem Reactive depression (situational) (92712457) Reactive depression (situational) (F32.9) Active confirmed Problem Obstructive sleep apnea syndrome (24847119) Obstructive sleep apnea hypopnea, severe (G47.33) Active confirmed Problem Chronic rhinitis (52874526) Rhinitis, unspecified type (J31.0) Active confirmed Problem Fibrocystic breast changes (16893108) Fibrocystic breast disease (FCBD), unspecified laterality (N60.19) Active confirmed Problem Hypertensive heart disease without congestive heart failure (52092098) Hypertensive heart disease, unspecified whether heart failure present (I11.9) Active confirmed Problem Sense of smell altered (168778443) Sense of smell altered (R43.9) Active confirmed Vital Signs Heart Rate 96 /min 02/24/2024 Blood pressure diastolic 78 mm Hg 02/24/2024 Height 71.25 in 02/24/2024 Blood pressure systolic 120 mm Hg 02/24/2024 Weight 276.4 lbs 02/24/2024 BMI 38.28 kg/m2 02/24/2024 Encounters Encounter Location Date Provider Diagnosis [facility] [place] [address] [place], [place] [phone] 11/24/2023 Aura Sandoval Essential hypertensi on I10 ; BMI 38.0-38.9,adult Z68.38 and Encounter for immunization Z23 [facility] [address] [place], [place] [id number] 02/02/2024 Leann Olmos COVID-19 U07.1 [facility] [address] [place], [place] [id number] 02/24/2024 Joseph [place] Acute UTI N39.0 [facility] [address] [place], [place] [id number] 11/21/2024 Aura Sandoval [facility] [address] [place], [place] [id number] 11/28/2023 [facility] [address] [place], [place] [id number] 12/22/2023 Aura Sandoval [facility] [address] [place], [place] [id number] 11/19/2024 Aura Sandoval Assessments Encounter Date Diagnosis (ICD Code) Assessment Notes Treatment Notes Treatment Clinical Notes Section Notes 11/24/2023 BMI 38.0-38.9,adult (ICD-10 - Z68.38) 02/02/2024 COVID-19 (ICD-10 - U07.1) Fluids, rest, supportive measures for fever and symptoms relief, discussed covid vitamins and isolation period. 02/24/2024 Acute UTI (ICD-10 - N39.0) 11/24/2023 Essential hypertension (ICD-10 - I10) 11/24/2023 Encounter for immunization (ICD-10 - Z23) Plan Of Treatment Next Appt Details Provider Name:Aura Maradiaga er, 11/22/2024 03:45:00 PM, [address], [address], [place], [place], [id number], Insurance Providers Payer Name Payer Address Payer Phone Subscriber Number Group Number Insured Name Patient Relationship to Insured Coverage Start Date Coverage End Date [employer] [address] [place] [id number] [phone] [id number] CRYSTAL BLACKMAN Self - patient is the insured [employer] [address] [place] [address] [id number] CRYSTAL BLACKMAN Self - patient is the insured Medications Administered Medication Instructions Date of Administration Dosage Notes B-12 10/25/2008 B-12 11/01/2008 1 mL B-12 11/08/2008 1 mL B-12 11/16/2008 1 mL B-12 12/18/2008 B-12 01/30/2009 B-12 03/06/2009 1 mL Benadryl 10/25/2018 50 mg Dexamethasone 10/25/2018 1 mL rocephin one gram IM 10/25/2018 1 g Medical (General) History Medical History History ICD Code allergic rhinitis hyperlipidemia Esophageal reflux Surgical History Surgery Date(Month/Year) tubal ligation umbilical hernia repair ovarian cyst removal total hysterectomy cholecystectomy Bajwa's esophagitis 12/2011 medtronic heart monitor placement 2016 heart cath 09/26/2018 Neg colonoscopy, neg EGD (BAJWA'S RESO LVED) 11/23/2019 loop recorder removed 11/07/2023 Hospitalization History Reason Date(Month/Year) [facility]- er for lightheaded 07/2015 [facility]- chest pain 08/24-
[2024-11-22 09:28] LABS: Hematocrit 42.3 % (37.0-47.0); Hemoglobin 13.8 g/dL (12.2-16.2); Immature Granulocytes % 0.5 %; Mean Corpuscular HGB Conc 32.6 g/dL (31.8-35.4); Mean Corpuscular Hemoglobin 30.0 pg (27.0-31.2); Mean Corpuscular Volume 92.0 fl (81-99); Nucleated Red Blood Cells % 0 %; Platelet Count 314 K/mm3 (142-424); Red Blood Count 4.60 M/mm3 (4.20-5.40); Red Cell Distribution Width-SD 42.5 fL; White Blood Count 6.3 K/mm3 (4.8-10.8)
[2024-11-22 10:07] LABS: Alanine Aminotransferase 26 U/L (12-78); Albumin Level 4.3 g/dl (3.5-5.0); Albumin/Globulin Ratio 1.7 (1.1-1.8); Alkaline Phosphatase 86 U/L (38-126); Anion Gap 11.2 mEq/L (5-15); Aspartate Amino Transferase 28 U/L (14-36); Bilirubin,Total 0.6 mg/dl (0.2-1.3); Blood Urea Nitrogen 14 mg/dl (7-17); Calcium 9.6 mg/dl (8.4-10.2); Carbon Dioxide 29 mmol/L (22.0-30.0); Chloride 102 mmol/L (98-107); Creatinine,Serum 0.90 mg/dl (0.52-1.04); Estimated Glomerular Filt Rate 65 ml/min (>60); GFR (African American) 78 ML/MIN (>60); Globulin 2.6 g/dL (1.3-3.2); Glucose 114 mg/dl (74-100); Potassium 5.2 mmoL/L (3.5-5.1); Sodium 137 mmol/L (136-145); Total Protein,Serum 6.9 g/dl (6.3-8.2)
== END 2024-11-22 23:59 | disposition home or self-care (01) ==
LOC: LAB 08:23
PROVIDERS: PCP Family Medicine; Visit Provider Family Medicine
DX: I10 Essential (primary) hypertension (principal)
CPT/HCPCS: 36415; 80053; 82043; 82570; 85025

== ENCOUNTER 2025-02-06 07:52 | Outpatient (CLI) | payer BC, SELFPAY ==
--- NOTE | 2025-02-06 07:55 | MM_ITS ---
PROCEDURE INFORMATION: Exam: MG Bilateral Screening 3D Mammography Exam date and time: 02/06/2025 8:06 AM Age: 60 years old Clinical indication: Screening examination TECHNIQUE: Imaging protocol: Bilateral Screening tomosynthesis and 2D mammography including computer-aided detection (CAD) when performed. COMPARISON: 1. MG MM DIG SCREENING MAMM BI W/CAD 01/11/2024 7:49 AM 2. MG MM DIG SCREENING MAMM BI W/CAD 01/06/2023 3:46 PM FINDINGS: MAMMOGRAPHY: Breast composition: The breasts are heterogeneously dense, which may obscure small masses. Mass: None. Architectural distortion: None. Calcifications: No suspicious calcifications. Asymmetric density: None. Skin thickening: None. Axillary adenopathy: None. IMPRESSION: No mammographic evidence of malignancy. Annual screening is recommended unless otherwise clinically indicated. ASSESSMENT: BI-RADS Category 1: Negative.
== END 2025-02-06 23:59 | disposition home or self-care (01) ==
LOC: RAD 07:53
PROVIDERS: PCP Family Medicine; Visit Provider Family Medicine
DX: Z12.31 Encounter for screening mammogram for malignant neoplasm of breast (principal); R92.333 Mammographic heterogeneous density, bilateral breasts
CPT/HCPCS: 77063; 77067